=== PATIENT | male | born 1940 | race Caucasian/White ===

== ENCOUNTER 2018-10-20 01:22 | Outpatient (CLI) | payer MEDICARE, SELFPAY ==
[2018-10-20 11:02] LABS: Hemoglobin A1C 7.4 % (4.5-6.2)
[2018-10-20 11:10] LABS: Anion Gap 9.6 mmol/L (3-11); BUN 14 mg/dL (7-18); CO2 26.4 mmol/L (21.0-32.0); CREATININE 0.77 mg/dL (0.70-1.30); Calcium 8.9 mg/dL (8.5-10.1); Chloride 105 mmol/L (98-107); Cholesterol 249 mg/dL (50-200); Glucose 152 mg/dL (70-100); HDL Cholesterol 62 mg/dL (40-60); LDL CHOLESTEROL 157 mg/dL (<100); Potassium 4.2 mmol/L (3.5-5.1); Sodium 141 mmol/L (136-145); Triglyceride 136 mg/dL (30-150)
== END 2018-10-20 01:42 ==
PROVIDERS: PCP Family Medicine; Visit Provider Family Medicine
DX: E11.9 Type 2 diabetes mellitus without complications (principal); I10 Essential (primary) hypertension
CPT/HCPCS: 36415; 80048; 80061; 83721; 83036

== ENCOUNTER → 2019-05-19 09:50 | Outpatient (BNVA) | payer MEDICARE, SELFPAY | PROVIDERS: PCP Family Medicine; Referring Provider Family Medicine; Visit Provider Nurse Practitioner Adult Health | DX: G56.03 Carpal tunnel syndrome, bilateral upper limbs (principal); G56.23 Lesion of ulnar nerve, bilateral upper limbs | CPT/HCPCS: 95911; 99203 ==

== ENCOUNTER → 2019-11-10 10:45 | Outpatient (BNVA) | payer MEDICARE, SELFPAY | PROVIDERS: PCP Family Medicine; Referring Provider Family Medicine; Visit Provider Orthopaedic Surgery | DX: G56.03 Carpal tunnel syndrome, bilateral upper limbs (principal) | CPT/HCPCS: 99201; 99213 ==

== ENCOUNTER 2019-11-20 08:00 | Outpatient (CLI) | payer MEDICARE, SELFPAY | END 2019-11-20 08:20 | PROVIDERS: PCP Family Medicine; Visit Provider Orthopaedic Surgery | DX: Z01.818 Encounter for other preprocedural examination (principal); G56.01 Carpal tunnel syndrome, right upper limb; I10 Essential (primary) hypertension; E11.9 Type 2 diabetes mellitus without complications; Z79.01 Long term (current) use of anticoagulants ==

== ENCOUNTER 2020-01-08 07:28 | Outpatient (CLI) | payer MEDICARE, SELFPAY ==
[2020-01-10 00:31] LABS: COVID-19 RT-PCR Result NEGATIVE (Negative)
== END 2020-01-08 07:48 ==
PROVIDERS: PCP Family Medicine; Visit Provider Orthopaedic Surgery
DX: Z01.818 Encounter for other preprocedural examination (principal)
CPT/HCPCS: U0003

== ENCOUNTER 2020-01-11 06:40 | Day surgery (SDC) | payer MEDICARE, SELFPAY ==
[2020-01-11 06:58] VITALS: BP 127/70; PULSE 86; RESP 18; TEMP 36.4; O2SAT 99
[2020-01-11] MEDS: Lactated Ringers 1,000 ML 80 ML IV (07:20)
[2020-01-11] MEDS: ceFAZolin 1 GM/50 ML BAG IVPB (07:30)
--- NOTE | 2020-01-11 08:06 | PDOC.DSDIS_ITS ---
Discharge Plan Disposition Patient Disposition: HOME Condition: Good Discharge Details Reason For Visit: R ECTR Attending Provider: Johnnie Ac Primary Care Provider: Deejay Ray Home Meds and New Rx's Prescriptions: New hydrocodone-acetaminophen 5-325 mg tablet 1 tab PO Q6H PRN (Reason: pain) Qty: 7 RF: 0 Continued atorvastatin 40 mg tablet 40 mg PO DAILY Qty: 90 RF: 4 tamsulosin 0.4 mg capsule 0.4 mg PO DAILY Qty: 90 RF: 4 azelastine 0.15 % (205.5 mcg) spray,non-aerosol 2 spray NEGRITA BID PRN (Reason: nasal congestion) Qty: 30 RF: 0 lisinopril 30 mg tablet 40 mg PO DAILY RF: 0 aspirin 325 MG tablet 325 mg PO DAILY RF: 0 (DME) blood-glucose meter [[employer] UltraMini] 1 EACH kit 1 ea Miscellaneous ONCE RF: 0 (DME) Blood Glucose Test Strip 1 ea Miscellaneous DAILY Qty: 100 RF: 4 (DME) lancets 28 gauge misc 1 ea Miscellaneous DAILY Qty: 100 RF: 4 clopidogrel 75 mg tablet 75 mg PO DAILY Qty: 90 RF: 4 metoprolol succinate 100 mg tablet extended release 24 hr 100 mg PO DAILY Qty: 90 RF: 3 metformin 850 mg tablet 850 mg PO BID Qty: 180 RF: 4 amlodipine 10 mg tablet 10 mg PO QAM Qty: 90 RF: 4 aspirin 81 mg Tablet,Chewable 81 mg PO DAILY RF: 0 hydrochlorothiazide 12.5 mg Capsule 12.5 mg PO DAILY RF: 0 Discharge Instructions Additional Instructions: Elevate R hand above heart level as much as possible overnite tonite. Wiggle fingers 10 times/hour when awake to prevent swelling. Keep splint and dressings dry and in place for 48 hours. After 48 hours, remove splint and dressings and begin to move R wrist. May use R hand as much as your discomfort allows. May shower or bathe and get incision wet after you remove the dressings in 48 hours. Leave incision uncovered when it is dry and sealed. Your fingers R hand may stay numb for 24 hours due to nerve block I put in to decrease post-op pain. Follow up with in 2 weeks. Take tylenol for mild pain. Take hydrocodone for breakthru pain. Resume your Plavix tonite. Referrals: Johnnie Ac MD [ [facility] STAFF PHYSICIAN] - (f/u in 2 weeks.) Equipment/Supplies: Splint Activity:: Activity as Tolerated Remove Dressings/Wound Care:: 48 hours Shower/Bathe:: 48 hours Diet:: As Tolerated Discharge Orders Discharge Orders: Discharge Order (Routine); Ordered 01/11/20 Ordered By: Johnnie Ac
[2020-01-11 08:35] VITALS: BP 127/76; PULSE 74; RESP 18; TEMP 36.3; O2SAT 97
--- NOTE | 2020-01-11 16:41 | W.PM.OP ---
Date of service: 01/11/20 Time of Service: 08:01 Operative Note Operative Note DATE OF PROCEDURE: 01/11/20 PRE-OP DIAGNOSIS: Right carpal tunnel syndrome POST-OP DIAGNOSIS: same PROCEDURE: Endoscopic carpal tunnel release right SURGEON: Johnnie Ac ANESTHESIA: regional PATHOLOGY: none sent TOURNIQUET TIME: 20 COMPLICATIONS: None Patient was transported to: PACU Patient's condition: stable Indications: This is a 79-year-old white male with a greater than 11-month history of persistent numbness in his index middle and ring fingers. He gets intermittent numbness in his thumb. This is associated with significant pain in his right hand. He was evaluated by neurology and was noted to have the moderate to severe carpal tunnel syndrome on the right in May 2019. He does not feel splinting helps. He feels that his pain and numbness is getting worse. He has difficulty picking up small objects and buttoning his buttons. Carpal tunnel release was recommended to alleviate his symptoms. Patient wished to undergo the endoscopic technique of carpal tunnel release. The risk and complication of the procedure have been explained to patient detail preop. Procedure Description: Patient taken the operating room on 01/11/2020 he was placed supine operative table. IV regional anesthesia was administered to the right upper extremity. Once good anesthesia was obtained the right hand wrist and forearm were prepped and draped free in the usual sterile fashion. Incision was made in line with the proximal flexion crease of the right wrist beginning at the flexor carpi radialis and extending to the flexor carpi ulnaris tendon. Incision was carried through the skin and subcu to the fascia. Subcutaneous veins were cauterized. The palmaris longus tendon was retracted radially and then a distally based fascial flap was raised to gain access to the carpal canal. Synovial reflector was used to release any soft tissue attachments to the undersurface of the volar carpal ligament. Series of obturators were then used to create room for the endoscope. TheAgee endoscope blade device was then inserted into the carpal canal. Care was taken the position endoscope against the hook of the hamate. The endoscope was advanced until the distal edge of the volar carpal ligament was clearly visualized. The trigger was depressed elevating the blade and the elevated blade was then brought out from distal to proximal through the incision. The endoscope was then placed back on the carpal canal and the median nerve was seen to fall into the defect created in the volar carpal ligament. The endoscope was removed. Using Littler scissors a subcutaneous fasciotomy was then performed from the incision proximally about 2 inches. The wound was irrigated saline solution. The wound margins were infiltrated with 0.5% Marcaine with epinephrine solution. A median nerve block was performed with 0.5% Marcaine with epinephrine solution. The skin edges were approximated with 2 horizontal mattress sutures of 4-0 nylon suture material. Wounds dressed with Xeroform gauze sterile gauze 4 x 4's wrapped with a Kerlix bandage wrapped with an Jonathon bandage and then placed in a commercial cock-up wrist splint. Patient's IV regional anesthesia was reversed without complications. He was discharged to the recovery room in good condition. Patient was discharged home from day surgery unit when fully recovered from his IV regional anesthesia. Patient was given instructions to elevate his right hand above heart level as much as possible for the next 24 hours. He is encouraged to wiggle his fingers 10 times an hour when awake to prevent swelling. He is instructed to remove his splint and dressings after 48 hours. He may then shower or bathe and get his incision wet. He may use his right hand is much as discomfort allows. He is to leave the incision uncovered when is dry and sealed. He is encouraged to take Tylenol for mild pain. He is given prescription for hydrocodone with APAP 10/10/2024, 1 p.o. every 6 hours as needed for breakthrough pain. Should follow-up with Dr. Ac's office in 2 weeks.
== END 2020-01-11 09:23 | disposition home or self-care (01) ==
PROVIDERS: PCP Family Medicine; Visit Provider Orthopaedic Surgery
PROC: 01N54ZZ Release Median Nerve, Percutaneous Endoscopic Approach (ICD-10-PCS; CPT 29848; principal; 2020-01-11 07:30)
DX: G56.01 Carpal tunnel syndrome, right upper limb (principal)
CPT/HCPCS: 29848; J0690; J2704; L3908

== ENCOUNTER → 2020-01-26 10:19 | Outpatient (BNVA) | payer MEDICARE, SELFPAY | PROVIDERS: PCP Nurse Practitioner; Referring Provider Family Medicine; Visit Provider Orthopaedic Surgery | DX: Z47.89 Encounter for other orthopedic aftercare (principal); G56.03 Carpal tunnel syndrome, bilateral upper limbs; E11.9 Type 2 diabetes mellitus without complications; I10 Essential (primary) hypertension ==

== ENCOUNTER 2020-03-21 08:47 | Outpatient (CLI) | payer MEDICARE, SELFPAY ==
[2020-03-22 17:47] LABS: COVID-19 RT-PCR Result NEGATIVE (Negative)
== END 2020-03-21 09:07 ==
PROVIDERS: PCP Family Medicine; Visit Provider Family Medicine
DX: Z11.59 Encounter for screening for other viral diseases (principal); Z01.818 Encounter for other preprocedural examination
CPT/HCPCS: U0003

== ENCOUNTER → 2020-04-26 09:50 | Outpatient (BNVA) | payer MEDICARE, SELFPAY | PROVIDERS: PCP Family Medicine; Referring Provider Family Medicine; Visit Provider Orthopaedic Surgery | DX: Z47.89 Encounter for other orthopedic aftercare (principal); G56.03 Carpal tunnel syndrome, bilateral upper limbs | CPT/HCPCS: 99213 ==

== ENCOUNTER → 2020-07-25 09:52 | Outpatient (BNVA) | payer MEDICARE, SELFPAY | PROVIDERS: PCP Family Medicine; Referring Provider Family Medicine; Visit Provider Student in an Organized Health Care Education/Training Program | DX: Z47.89 Encounter for other orthopedic aftercare (principal); G56.03 Carpal tunnel syndrome, bilateral upper limbs | CPT/HCPCS: 99213 ==

== ENCOUNTER → 2020-08-30 14:00 | Outpatient (BNVA) | payer MEDICARE, SELFPAY | PROVIDERS: PCP Family Medicine; Referring Provider Student in an Organized Health Care Education/Training Program; Visit Provider Nurse Practitioner Adult Health | DX: G56.03 Carpal tunnel syndrome, bilateral upper limbs (principal) | CPT/HCPCS: 95909; 99214 ==

== ENCOUNTER → 2020-09-16 08:42 | Outpatient (BNVA) | payer MEDICARE, SELFPAY | PROVIDERS: PCP Family Medicine; Referring Provider Family Medicine; Visit Provider Student in an Organized Health Care Education/Training Program | DX: M72.0 Palmar fascial fibromatosis [Dupuytren] (principal); M65.332 Trigger finger, left middle finger; G56.01 Carpal tunnel syndrome, right upper limb; G56.02 Carpal tunnel syndrome, left upper limb | CPT/HCPCS: 20550; 99213; J1030 ==

== ENCOUNTER 2020-09-24 15:22 | Inpatient (IN) | payer MEDICARE, SELFPAY ==
[2020-09-24] VITALS (52 sets, daily range): BP systolic 108–180; BP diastolic 58–99; PULSE 61–143; RESP 8–29; TEMP 36.4–36.7; O2SAT 94–100
--- NOTE | 2020-09-24 15:15 | RT.EKG_ITS ---
APPROVED REPORT Exam: Resting ECG Patient Location: E HR:120 bpm ECG Measurements Heart Rate 120 AXIS HI [id number] P [id number] QRSd 100 QRS 2 QT 350 T 176 QTc 494 Conclusion Atrial fibrillation...V-rate 82-152, irreg A-activity Repol abnrm, prob ischemia, anterolateral lds...ST dep, T neg, I aVL V2-V6 I have reviewed and interpreted ECG and agree with software generated interpretation.
[2020-09-24 15:42] LABS: Abs Immature Grans 0.05 10^3/uL (0.0-0.06); Absolute Basophil Count 0.03 10^3/uL (0.0-0.2); Absolute Eosinophil Count 0.09 10^3/uL (0.0-0.7); Absolute Lymphocyte Count 1.22 10^3/uL (1.2-3.4); Absolute Monocyte Count 0.61 10^3/uL (0.1-0.8); Absolute Neutrophil Count 6.41 10^3/uL (1.2-6.7); Basophils % 0.4; Eosinophils % 1.1; HCT 42.8 % (40.0-50.0); HGB 14.8 g/dL (13.5-17.5); Immature Grans % 0.6; Lymphocytes % 14.5; MCH 31.8 pg (27.0-33.0); MCHC 34.6 % (32.0-36.0); MPV 10.1 fL (8.0-11.0); Monocytes % 7.3; Neutrophils % 76.1; Nucleated RBC 0 %; Platelet Count 210 10^3/uL (130-400); RBC 4.65 10^6/uL (4.36-5.78); RDW 12.1 % (11.8-14.1); WBC 8.41 10^3/uL (4.4-10.8)
[2020-09-24 15:57] LABS: INR 1.2 (0.9-1.1); PTT Activated 23.9 sec (21.0-27.5)
[2020-09-24 15:58] LABS: ALT 29 U/L (16-63); AST 13 U/L (15-37); Albumin 4.4 g/dL (3.4-5.0); Alkaline Phosphatase 47 U/L (46-116); Anion Gap 19.8 mmol/L (3-11); BUN 20 mg/dL (7-18); Bilirubin, Total 0.5 mg/dL (0.2-1.0); CO2 19.2 mmol/L (21.0-32.0); CREATININE 1.4 mg/dL (0.70-1.30); Chloride 101 mmol/L (98-107); Estimated GFR 48.76 (mL/min/1.73m2); Glucose 292 mg/dL (74-106); Magnesium 1.2 mg/dL (1.8-2.4); Potassium 3.5 mmol/L (3.5-5.1); Sodium 140 mmol/L (136-145); Total Protein 7.9 g/dL (6.4-8.2)
[2020-09-24 15:59] LABS: Troponin I < 0.05 ng/mL (<0.06)
--- NOTE | 2020-09-24 16:00 | DI.CT_ITS ---
EXAM: CT CHEST PE CTA CLINICAL HISTORY: chest pain, sob, r/o acute disease/PE. TECHNIQUE: Imaging Protocol: Axial CT angiography was performed with multi-slice acquisition and mu lti-planar and/or 3D reconstructions. CONTRAST MATERIAL: Intravenous: Omnipaque 350 Contrast volume:structured data in ml COMPARISON: No exams were available for comparison FINDINGS: CT angiography of the chest was performed with intravenous infusion of 80 cc of Visipaque 320 There is significant motion artifact which limits evaluation of the lungs, however there does appear to be some prominence of the pulmonary interstitial markings particularly in the perihilar regions. No pleural effusion. Tracheobronchial tree appears intact. No evidence of pulmonary embolic disease. Thoracic aorta is mildly ectatic at 41 millimeters. There is a right-sided aortic arch. Left subclavian artery is retrotracheal and retroesophageal. Incidental note is made of a left renal artery stent. No mediastinal or hilar adenopathy. Images obtained through the upper abdomen show unremarkable appearance of the visualized portions of the liver, spleen, pancreas, adrenals, and kidneys. IMPRESSION: No evidence of pulmonary embolic disease. Question mild pulmonary edema. RADIATION DOSE DELIVERED: 330.89mGy.cm Total DLP 330.89mGy.cm Total DLP DATA REPOSITORY: All CT scans at this facility are submitted to the National Radiology Data Registry (NRDR) Dose Index Registry (DIR) with the [employer] (ACR). RADIATION OPTIMIZATION: All CT scans at this facility use at least one of these dose optimization te chniques: automated exposure control; mA and/or kV adjustment per patient size (includes targeted exa ms where dose is matched to clinical indication); or iterative reconstruction.
[2020-09-24] MEDS: Metoprolol 5 MG/5 ML VIAL IVP (16:04)
[2020-09-24] MEDS: Normal Saline 250 ML IV (16:04)
--- NOTE | 2020-09-24 16:11 | W.ED.GENAD ---
Discharge Plan Disposition Patient Disposition: [facility] INPATIENT Condition: Stable Discharge Details Clinical Impression: Atrial fibrillation with rapid ventricular response, Hypomagnesemia, Bilateral lower extremity edema, History of congestive heart failure Admit Date/Time: 09/24/20 18:51 Admit Provider: Yazmin Jeffery Attending Provider: Yazmin Jeffery Primary Care Provider: Wesley Negrete ED Provider: Stacy Owens Discharge Data Discharge Date/Time-TO BE ENTERED AT DEPARTURE: 09/24/20 20:20 Medical Decision Making 1540 -- 80-year-old male with a history of hypertension, coronary artery disease, diabetes, CABG, coronary artery stent who presents for chest pain or shortness of breath since this afternoon. EKG on arrival notes a rate of 120, atrial fibrillation with ST depression in anterolateral leads. No STEMI. Heart rate irregular and 120s to 150s on the monitor. He is afebrile and appears nontoxic. His oxygen saturation is 99% on room air and he does not appear in any acute respiratory distress. Suspect his chest pain or shortness of breath is due to his A. fib with RVR. Will obtain screening labs and CT chest to rule out PE and give IV fluids and a dose of 5 mg Lopressor IV x1 and reassess. 1645 -- Only minimal temporary response after Lopressor, heart rate 120s. Will give a dose of Cardizem 15 mg IV x1 and reassess. 1830 -- Labs reviewed. Normal white blood cell count and hemoglobin. Glucose 292. Bicarb 19.2. Anion gap of 19.8. Magnesium 1.2, will replete. Troponin negative. BNP 858. CT chest negative for PE or focal consolidation but does note cardiomegaly and mild patchy opacities suggestive of CHF. Heart rate after Cardizem dose in the 70s to 80s. Patient reassessed and he states he feels much better. He currently denies any chest pain or shortness of breath. Patient is asking if he could possibly go home. Discussed with patient that considering his age and his medical history and his initial presentation, would recommend admission overnight for observation, telemetry monitoring and trending troponins and EKGs. is at bedside. and patient are agreeable with plan. Case discussed with hospitalist accepts patient for admission. Will give dose of Cardizem 30mg PO x 1 now. Medical Records Medical records reviewed: Yes I reviewed the patient's medical records. Imaging Data Radiologic Study: Attestation: I personally reviewed and interpreted this imaging study as follows: Radiologist's impression: CTA Chest With Contrast Exam date and time: 09/24/2020 5:33 PM Age: 80 years old Clinical indication: Shortness of breath; Prior surgery; Surgery date: 6+ months TECHNIQUE: Imaging protocol: Computed tomographic angiography of the chest with contrast. 3D rendering (Not supervised by radiologist): MIP and/or 3D reconstructed images were created by the technologist. Contrast material: VISIPAQUE 320; Contrast volume: 80 ml; Contrast route: INTRAVENOUS (IV); COMPARISON: No relevant prior studies available. FINDINGS: Pulmonary arteries: There is no pulmonary embolism. Aorta: The ascending aorta is ectatic measuring up to 4.1 cm. There is a right-sided arch of aorta with probable mirror image branching the great vessels. There is moderate calcification of arch and descending thoracic aorta. The postoperative changes due to cardiac bypass. Other arteries: There is a probable stent at the origin of the left renal artery. Lungs: There is mild interlobular septal thickening and hazy ground-glass densities in the bilateral lungs suspicious of mild pulmonary edema or congestive heart failure pattern Pleural spaces: There is no pleural effusion.. Heart: Heart is enlarged with biatrial enlargement. Mediastinal space: There is small hiatal hernia. Lymph nodes: Unremarkable. No enlarged lymph nodes. Bones/joints: There are degenerative changes in the thoracic spine. There are median sternotomy wires. Soft tissues: Unremarkable. IMPRESSION: 1. No pulmonary embolism or aortic dissection. 2. Cardiomegaly with mild patchy ground-glass densities suspicious of congestive heart failure pattern. Correlate clinically. No pleural effusion. 3. No focal consolidation. 4. 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 Lab Data Lab results reviewed: Yes I reviewed the patient's lab results. ECG Data Attestation: I personally reviewed and interpreted this ECG (s) as follows: Interpretation: Rate of 120, atrial fibrillation, [address] depression in 1, 2, aVL, V4 through V6. No STEMI. HPI General Mode of arrival: ambulatory. Date/Time Provider Initiated Documentation: 09/24/20 15:32. Limitations to Documentation: no limitations. Information obtained by: patient. HPI Narrative: Patient is an 80-year-old male with a history of atrial fibrillation, hypertension, coronary artery disease, diabetes, CABG and coronary artery stent placement who presents to the ED with complaint of chest pain or shortness of breath started this afternoon. Patient states he had his symptoms both at rest and with walking around. He denies any exertional activities today. He denies any fever, cough, vomiting or diarrhea. He states he took his regular medications today including his metoprolol. He denies any recent illness and states he was feeling fine this morning. Related Data Home Medications Medication Instructions Recorded Confirmed blood-glucose meter [OneTouch kit 12/01/12 09/24/20 UltraMini] atorvastatin 40 mg tablet 40 mg PO DAILY #90 tab-cap 10/21/18 09/24/20 tamsulosin 0.4 mg capsule 0.4 mg PO DAILY #90 cap 01/20/19 09/24/20 azelastine 205.5 mcg (0.15 %) 2 spray NEGRITA BID PRN #30 ml 06/30/19 09/24/20 nasal spray lancets 28 gauge #100 ea 07/02/19 09/24/20 metformin 850 mg tablet 850 mg PO BID #180 tab-cap 11/12/19 09/24/20 metoprolol succinate 100 mg 100 mg PO DAILY #90 tab-cap 11/12/19 09/24/20 tablet,extended release 24 hr amlodipine 10 mg tablet 10 mg PO QAM #90 tab-cap 11/27/19 09/24/20 lisinopril 30 mg tablet 40 mg PO DAILY tab-cap 12/31/19 09/24/20 hydrochlorothiazide 12.5 mg PO DAILY 01/07/20 09/24/20 aspirin 81 mg chewable tablet 81 mg PO PRN tab 03/09/20 09/24/20 apixaban 5 mg tablet 5 mg PO BID #180 tab 07/13/20 09/24/20 blood sugar diagnostic #100 ea 09/08/20 09/24/20 Previous Rx's Medication Instructions Recorded atorvastatin 40 mg tablet 40 mg PO DAILY #90 tab-cap 10/21/18 tamsulosin 0.4 mg capsule 0.4 mg PO DAILY #90 cap 01/20/19 azelastine 205.5 mcg (0.15 %) 2 spray NEGRITA BID PRN #30 ml 06/30/19 nasal spray lancets 28 gauge #100 ea 07/02/19 metformin 850 mg tablet 850 mg PO BID #180 tab-cap 11/12/19 metoprolol succinate 100 mg 100 mg PO DAILY #90 tab-cap 11/12/19 tablet,extended release 24 hr amlodipine 10 mg tablet 10 mg PO QAM #90 tab-cap 11/27/19 apixaban 5 mg tablet 5 mg PO BID #180 tab 07/13/20 blood sugar diagnostic #100 ea 09/08/20 Allergies Allergy/AdvReac Type Severity Reaction Status Date / Time No Known Allergies Allergy Verified 09/16/20 08:51 General Stated Complaint: Chest Pain HIEN: 2 Review of Systems All systems reviewed & are unremarkable except as noted in HPI and below Constitutional Constitutional: Reports as per HPI, Denies chills and Denies fever(s) Eyes Eyes: Denies blurry vision ENT Ears, Nose, Mouth, and Throat: Denies dizziness, Denies sore throat and Denies throat swelling Cardiovascular Cardiovascular: Reports chest pain and Reports dyspnea Respiratory Respiratory: Denies cough and Reports dyspnea Gastrointestinal Gastrointestinal: Denies abdominal pain, Denies diarrhea and Denies vomiting Genitourinary Genitourinary: Denies hematuria and Denies dysuria Musculoskeletal Musculoskeletal: Denies back pain and Denies numbness Integumentary/Breasts Skin/Breast: Denies lesions and Denies rash Neurologic Neurologic: Denies dizziness, Denies localized weakness and Denies numbness Allergic/Immunologic Allergic/Immunologic: Denies throat swelling [facility] Medical History (Updated 09/24/20 @ 22:12 by Yazmin Jeffery MD) Angina pectoris Atherosclerosis of [place] coronary artery coronary stent x 5 05/14 Echo 07/16-LVEF 68% Carotid artery stenosis right; stent placed 04/17 Diabetes mellitus (12/09/12) Essential hypertension (06/09/13) Surgical History History of intravascular stent placement Repair of inguinal hernia right Status post inguinal hernia repair Status post three vessel coronary artery bypass Status post tonsillectomy Stent placement 2004; 5 stents 1 stent to left renal artery TRIPLE BYPASS 1 CAROTID STENT ON RIGHT SIDE 5 STENTS TOTAL Family History Mother , AGE 80 Diabetes Heart disease Father , AGE 80 Heart disease Sister No problems noted. Brother No problems noted. Sister No problems noted. Brother Diabetes Heart disease Son , AGE 50 Alcohol abuse Depression Hypertension Daughter No problems noted. Daughter No problems noted. Social History Smoking/Tobacco Use Status: Former Tobacco Use Second Hand Exposure: No Smoking risk assessment performed?: Yes Alcohol Intake: current Alcohol Intake frequency: a few times a week Alcohol type: beer and wine Drug use: Never Substance use type: does not use Details: alcohol: t-1, couple beers Household members: spouse Do you need help understanding health information?: Never Sexually active: No Do you think of yourself as: straight/heterosexual Current gender identity: decline to answer What is your relationship status?: How often do you talk on the phone with friends or family?: decline to answer How often do you get together with friends or relatives?: decline to answer How often do you attend confucianism or church services?: decline to answer Do you belong to any clubs or organized social groups?: no Panel score (0-1 are the most socially isolated patients): 1 What type of physical activity do you participate in: none Frequency: does not exercise Rani/Sikhism: Jehovah'S Witness Special rani needs: No Seatbelt use: always Drive intox or ride w/intox parts driver: No Do you feel safe at home: Yes Do you feel safe in your relationship?: Yes Exam Const General: cooperative and no acute distress HENMT Head: normal to inspection Face and sinus: normal facial exam Eyes General: appearance normal, both eyes and all related structures EOM: EOM intact bilaterally Neck Neck: normal visual inspection and No submandibular swelling Lymphatic: no lymphadenopathy noted Chest Chest: normal inspection of the chest and no tenderness Resp Effort & Inspection: normal respiratory effort and able to speak in complete sentences Auscultation: clear to auscultation bilaterally Cardio Rate: tachycardic Rhythm: abnormal rhythm irregularly irregular GI Inspection: normal to inspection Palpation: soft, not firm, not rigid and nontender Auscultation: normal bowel sounds Skin General skin exam: no rashes or lesions noted Neuro General: patient alert, patient awake and patient oriented x3 Cognition: normal cognition Speech: speech normal Motor: muscle tone normal throughout Sensory Exam: no sensory deficits noted Extrem General: normal to inspection, full ROM, capillary refill normal, no calf tenderness bilaterally and edema Laterality: bilateral (1+ pitting b/l LE) Psych Appearance: grossly normal Mental Status: mental status grossly normal Speech and Movement: speech and movement normal Affect: normal affect Course Vital Signs Vital signs: Vital Signs Temperature 97.5 F L 09/24/20 15:34 Pulse 120 H 09/24/20 15:34 Respiratory Rate 16 09/24/20 15:34 Blood Pressure 156/81 H 09/24/20 15:34 Pulse Oximetry 99 09/24/20 15:34 Temperature 97.5 F L 09/24/20 15:34 Temperature Source Temporal Artery Scan 09/24/20 15:34 Pulse 131 H 09/24/20 16:04 Respiratory Rate 16 09/24/20 15:34 Respiratory Effort 09/24/20 15:32 Respiratory Depth Normal 09/24/20 15:32 Respiratory Pattern Normal 09/24/20 15:32 Blood Pressure 169/92 H 09/24/20 16:04 Blood Pressure Position Supine 09/24/20 15:34 Pulse Oximetry 99 09/24/20 15:34 Oxygen Delivery Method Room Air 09/24/20 15:34 Oxygen Flow Rate 0 09/24/20 15:34 Pain Level 5 09/24/20 15:34 Lab/Test Results Lab/Test Results: Laboratory Tests Range/Units 09/24/20 09/24/20 09/24/20 15:38 15:38 15:38 WBC (4.4-10.8) 10^3/uL 8.41 RBC (4.36-5.78) 10^6/uL 4.65 Hgb (13.5-17.5) g/dL 14.8 Hct (40.0-50.0) % 42.8 MCV (80-95) fL 92.0 MCH (27.0-33.0) pg 31.8 MCHC (32.0-36.0) % 34.6 RDW (11.8-14.1) % 12.1 Plt Count (130-400) 10^3/uL 210 MPV (8.0-11.0) fL 10.1 Immature Gran % 0.6 Neutrophils % 76.1 Lymphocytes % 14.5 Monocytes % 7.3 Eosinophils % 1.1 Basophils % 0.4 Nucleated RBC % % 0 Absolute Neutrophils (1.2-6.7) 10^3/uL 6.41 Absolute Lymphocytes (1.2-3.4) 10^3/uL 1.22 Absolute Monocytes (0.1-0.8) 10^3/uL 0.61 Absolute Eosinophils (0.0-0.7) 10^3/uL 0.09 Absolute Basophils (0.0-0.2) 10^3/uL 0.03 PT (9.3-11.0) sec 12.0 H INR (0.9-1.1) 1.2 H APTT (21.0-27.5) sec 23.9 Sodium (136-145) mmol/L 140 Potassium (3.5-5.1) mmol/L 3.5 Chloride (98-107) mmol/L 101 Carbon Dioxide (21.0-32.0) mmol/L 19.2 L Anion Gap (3-11) mmol/L 19.8 H BUN (7-18) mg/dL 20 H Creatinine (0.70-1.30) mg/dL 1.4 H Estimated GFR/1.73 m2 (mL/min/1.73m2) 48.76 Glucose (74-106) mg/dL 292 H Calcium (8.5-10.1) mg/dL 10.0 Magnesium (1.8-2.4) mg/dL 1.2 L Total Bilirubin (0.2-1.0) mg/dL 0.5 AST (15-37) U/L 13 L ALT (16-63) U/L 29 Alkaline Phosphatase (46-116) U/L 47 Troponin I (<0.06) ng/mL < 0.05 Total Protein (6.4-8.2) g/dL 7.9 Albumin (3.4-5.0) g/dL 4.4
[2020-09-24] MEDS: MAGNESIUM SULFATE 2 GM/50 ML BAG IVPB ×2 (16:16→22:16)
[2020-09-24 16:37] LABS: NT-proBNP 858 pg/mL (<300)
[2020-09-24] MEDS: dilTIAZem 25 MG/5 ML VIAL 15 MG IVP (16:54)
[2020-09-24 17:18] LABS: BE (Venous) -2 mmol/L (-2-3); HCO3 (Venous) 23 mmol/L (23-28); O2 Sat (Venous) 70 %; TCO2 (Venous) 20 mmol/L (24-29); pCO2 (Venous) 35 mmHg (41-51); pH (Venous) 7.41 (7.31-7.41); pO2 (Venous) 35 mmHg
[2020-09-24] MEDS: Normal Saline - Diluent 50 ML VIAL IV (17:39)
[2020-09-24] MEDS: Normal Saline Flush 10 ML SYR IVP ×2 (17:39→21:31)
--- NOTE | 2020-09-24 18:12 | DI.VRAD_ITS ---
PROCEDURE INFORMATION: Exam: CTA Chest With Contrast Exam date and time: 09/24/2020 5:33 PM Age: 80 years old Clinical indication: Shortness of breath; Prior surgery; Surgery date: 6+ months TECHNIQUE: Imaging protocol: Computed tomographic angiography of the chest with contrast. 3D rendering (Not supervised by radiologist): MIP and/or 3D reconstructed images were created by the technologist. Contrast material: VISIPAQUE 320; Contrast volume: 80 ml; Contrast route: INTRAVENOUS (IV); COMPARISON: No relevant prior studies available. FINDINGS: Pulmonary arteries: There is no pulmonary embolism. Aorta: The ascending aorta is ectatic measuring up to 4.1 cm. There is a right-sided arch of aorta with probable mirror image branching the great vessels. There is moderate calcification of arch and descending thoracic aorta. The postoperative changes due to cardiac bypass. Other arteries: There is a probable stent at the origin of the left renal artery. Lungs: There is mild interlobular septal thickening and hazy ground-glass densities in the bilateral lungs suspicious of mild pulmonary edema or congestive heart failure pattern Pleural spaces: There is no pleural effusion.. Heart: Heart is enlarged with biatrial enlargement. Mediastinal space: There is small hiatal hernia. Lymph nodes: Unremarkable. No enlarged lymph nodes. Bones/joints: There are degenerative changes in the thoracic spine. There are median sternotomy wires. Soft tissues: Unremarkable. IMPRESSION: 1. No pulmonary embolism or aortic dissection. 2. Cardiomegaly with mild patchy ground-glass densities suspicious of congestive heart failure pattern. Correlate clinically. No pleural effusion. 3. No focal consolidation. 4. 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 Dictated and Authenticated by: Robert Spencer MD. Ordering:MI Kumar MD
[2020-09-24 19:34] LABS: Lactate 2.9 mmol/L (0.6-1.4)
[2020-09-24] MEDS: dilTIAZem 30 MG TAB PO (19:53)
--- NOTE | 2020-09-24 19:59 | NUR.NOTE ---
Attempted to call report to ICU. State they are unable to take reports as they just received another pt. will call back.
[2020-09-24 20:05] LABS: Source Nasal/Nares
[2020-09-24 20:34] LABS: Troponin I 3.08 ng/mL (<0.06)
[2020-09-24] MEDS: Aspirin 325 MG TAB (20:50)
--- NOTE | 2020-09-24 21:24 | W.PM.HP.N ---
Date of service: 09/24/20 Time of Service: 21:00 Assessment and Plan Assessment and plan (1) NSTEMI (non-ST elevated myocardial infarction): Status: Acute Assessment and plan: Rate-related ischemia in setting of pre-existing CAD. Patient is s/p asa 325 mg and initiated on heparin gtt. Discussed with [facility] [place] [place] cardiology (Dr Ledesma): as EKG got a lot better with rate control, at this time, will not start plavix. Patient is accepted in transfer by [facility] [place] [place] cardiology (Accepting MD Dr Marks). Continue beta blockers; given PO cardizem in the ED, which we will also continue. (2) Atrial fibrillation with rapid ventricular response: Status: Acute Assessment and plan: The patient is receiving PO metoprolol and cardizem. Anticoagulation with heparin gtt. Replete lytes (3) Pulmonary edema: Status: Acute Assessment and plan: Mild. Patient is not tachypneic and not requiring O2, but probably does have rate dependent pulmonary edema. Prior EF is preserved. The patient just received IV contrast with CTA and may require more contrast tonight with cardiac cath. Will hold off of lasix tonight. (4) Hypomagnesemia: Status: Acute Assessment and plan: Replete (5) Diabetes mellitus: Status: Chronic Assessment and plan: SSI Qualifiers: Diabetes mellitus complication status: without complication Diabetes mellitus alf insulin use: without alf use Diabetes mellitus type: type 2 Qualified Code(s): E11.9 - Type 2 diabetes mellitus without complications (6) Essential hypertension: Status: Chronic Assessment and plan: hold amlodipine, ang-i Continue BB; cardizem introduced. (7) Hyperlipidemia: Status: Chronic Assessment and plan: Continue statin (8) DVT prophylaxis: Status: Acute Assessment and plan: On therapeutic heparin gtt (9) Discharge planning issues: Status: Acute Assessment and plan: Full Code (Patient is discussing code status with ; he is not sure). Accepted in Transfer at [facility] [place] [place] cardiology by Dr Marks. Total Critical Care Time 90 minutes. 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 It is normal for Mr Renard to get exertional chest pains that resolve with rest, but the one today started when he was watching TV and did not subside for over an hour. The chest pain was substernal, pressure-like, accompanied by shortness of breath. The patient denied dizziness, radiation of pain, nausea, palpitations. On arrival to the ED, the patient was found to be in rapid A-fib with HR in 140s-150s. The HR decreased to 120 post 5 mg of IV lopressor. He received a bolus of diltiazem IV with HR coming down to the 90s. The chest pain resolved with control of HR. The patient is chest pain free now. His initial troponin was negative and his EKG showed diffuse ST-T abnormalities, seen on his prior EKG as well. Repeat troponin I is 3.08, and the ST-T changes on the EKG are significantly less pronounced. The patient was given aspirin 325 mg, is being initiated on heparin gtt and transfer to [facility] [place] [place] cardiology service is being sought for evaluation by interventional cardiology for a cardiac cath. The patient is in agreement with transfer. Review of Systems All systems reviewed & are unremarkable except as noted in HPI and below [facility] Medical History (Updated 09/24/20 @ 21:58 by Yazmin Jeffery MD) Angina pectoris Atherosclerosis of [place] coronary artery coronary stent x 5 05/14 Echo 07/16-LVEF 68% Carotid artery stenosis right; stent placed 04/17 Diabetes mellitus (12/09/12) Essential hypertension (06/09/13) Surgical History History of intravascular stent placement Repair of inguinal hernia right Status post inguinal hernia repair Status post three vessel coronary artery bypass Status post tonsillectomy Stent placement 2004; 5 stents 1 stent to left renal artery TRIPLE BYPASS 1 CAROTID STENT ON RIGHT SIDE 5 STENTS TOTAL Family History Mother , AGE 80 Diabetes Heart disease Father , AGE 80 Heart disease Sister No problems noted. Brother No problems noted. Sister No problems noted. Brother Diabetes Heart disease Son , AGE 50 Alcohol abuse Depression Hypertension Daughter No problems noted. Daughter No problems noted. Social History Smoking/Tobacco Use Status: Former Tobacco Use Second Hand Exposure: No Smoking risk assessment performed?: Yes Alcohol Intake: current Alcohol Intake frequency: a few times a week Alcohol type: beer and wine Drug use: Never Substance use type: does not use Details: alcohol: t-1, couple beers Household members: spouse Do you need help understanding health information?: Never Sexually active: No Do you think of yourself as: straight/heterosexual Current gender identity: decline to answer What is your relationship status?: How often do you talk on the phone with friends or family?: decline to answer How often do you get together with friends or relatives?: decline to answer How often do you attend evangelical or muslim services?: decline to answer Do you belong to any clubs or organized social groups?: no Panel score (0-1 are the most socially isolated patients): 1 What type of physical activity do you participate in: none Frequency: does not exercise Rani/Zoroastrianism: Amish Special rani needs: No Seatbelt use: always Drive intox or ride w/intox 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: No Do you feel safe at home: Yes Do you feel safe in your relationship?: Yes Meds Allergies and Home Medications Allergies Allergy/AdvReac Type Severity Reaction Status Date / Time No Known Allergies Allergy Verified 09/16/20 08:51 Home Medications Medication Instructions Recorded Confirmed Type blood-glucose meter [OneTouch kit 12/01/12 09/24/20 History UltraMini] atorvastatin 40 mg tablet 40 mg PO DAILY #90 tab-cap 10/21/18 09/24/20 Rx tamsulosin 0.4 mg capsule 0.4 mg PO DAILY #90 cap 01/20/19 09/24/20 Rx azelastine 205.5 mcg (0.15 %) 2 spray NEGRITA BID PRN #30 ml 06/30/19 09/24/20 Rx nasal spray lancets 28 gauge #100 ea 07/02/19 09/24/20 Rx metformin 850 mg tablet 850 mg PO BID #180 tab-cap 11/12/19 09/24/20 Rx metoprolol succinate 100 mg 100 mg PO DAILY #90 tab-cap 11/12/19 09/24/20 Rx tablet,extended release 24 hr amlodipine 10 mg tablet 10 mg PO QAM #90 tab-cap 11/27/19 09/24/20 Rx lisinopril 30 mg tablet 40 mg PO DAILY tab-cap 12/31/19 09/24/20 History hydrochlorothiazide 12.5 mg PO DAILY 01/07/20 09/24/20 History aspirin 81 mg chewable tablet 81 mg PO PRN tab 03/09/20 09/24/20 History apixaban 5 mg tablet 5 mg PO BID #180 tab 07/13/20 09/24/20 Rx blood sugar diagnostic #100 ea 09/08/20 09/24/20 Rx Exam Narrative Exam Narrative: General: Pleasant elderly male, A&Ox3, anxious, does not appear to be in acute distress Neurological: A&Ox3, no focal deficits Psychiatric: anxious Skin: well healed CABG sternotomy scar; visible skin intact HEENT: Atraumatic, normocephalic, EOMI, MMM, clear oropharynx, no submandibular or cervical lymphadenopathy, no goiter or JVD Cardiovascular: irregularly irregular rhythm, no m/r/g Lungs: coarse breath sounds at B bases Gastrointestinal: soft, nontender, nondistended Genitourinary: deferred Extremities: trace edema BLE's, faint pedal pulses Results Imaging Additional studies: CTA chest: 1. No pulmonary embolism or aortic dissection. 2. Cardiomegaly with mild patchy ground-glass densities suspicious of congestive heart failure pattern. Correlate clinically. No pleural effusion. 3. No focal consolidation. 4. 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 EKG #1: HR 120, Afib, inferolateral ST depressions, diffuse ST-T abnormalities EKG #2: HR 88, Afib, ST-T changes still seen, but less pronounced Labs Result diagrams: 09/24/20 15:38 09/24/20 15:38 Labs: Laboratory Results - last 24 hr 09/24/20 09/24/20 09/24/20 15:38 15:38 15:38 WBC 8.41 RBC 4.65 Hgb 14.8 Hct 42.8 MCV 92.0 MCH 31.8 MCHC 34.6 RDW 12.1 Plt Count 210 MPV 10.1 Immature Gran % 0.6 Neutrophils % 76.1 Lymphocytes % 14.5 Monocytes % 7.3 Eosinophils % 1.1 Basophils % 0.4 Nucleated RBC % 0 Absolute Neutrophils 6.41 Absolute Lymphocytes 1.22 Absolute Monocytes 0.61 Absolute Eosinophils 0.09 Absolute Basophils 0.03 PT 12.0 H INR 1.2 H APTT 23.9 VBG pH VBG pCO2 VBG pO2 VBG HCO3 VBG Total CO2 VBG O2 Saturation VBG Base Excess VBG Lactate Sodium 140 Potassium 3.5 Chloride 101 Carbon Dioxide 19.2 L Anion Gap 19.8 H BUN 20 H Creatinine 1.4 H Estimated GFR/1.73 m2 48.76 Glucose 292 H Calcium 10.0 Magnesium 1.2 L Total Bilirubin 0.5 AST 13 L ALT 29 Alkaline Phosphatase 47 Troponin I < 0.05 NT-Pro-B Natriuret Pep Total Protein 7.9 Albumin 4.4 COVID-19 Source 09/24/20 09/24/20 09/24/20 15:38 17:10 19:10 WBC RBC Hgb Hct MCV MCH MCHC RDW Plt Count MPV Immature Gran % Neutrophils % Lymphocytes % Monocytes % Eosinophils % Basophils % Nucleated RBC % Absolute Neutrophils Absolute Lymphocytes Absolute Monocytes Absolute Eosinophils Absolute Basophils PT INR APTT VBG pH 7.41 VBG pCO2 35 L VBG pO2 35 VBG HCO3 23 VBG Total CO2 20 L VBG O2 Saturation 70 VBG Base Excess -2 VBG Lactate 2.9 H* Sodium Potassium Chloride Carbon Dioxide Anion Gap BUN Creatinine Estimated GFR/1.73 m2 Glucose Calcium Magnesium Total Bilirubin AST ALT Alkaline Phosphatase Troponin I NT-Pro-B Natriuret Pep 858 H Total Protein Albumin COVID-19 Source 09/24/20 09/24/20 19:56 20:00 WBC RBC Hgb Hct MCV MCH MCHC RDW Plt Count MPV Immature Gran % Neutrophils % Lymphocytes % Monocytes % Eosinophils % Basophils % Nucleated RBC % Absolute Neutrophils Absolute Lymphocytes Absolute Monocytes Absolute Eosinophils Absolute Basophils PT INR APTT VBG pH VBG pCO2 VBG pO2 VBG HCO3 VBG Total CO2 VBG O2 Saturation VBG Base Excess VBG Lactate Sodium Potassium Chloride Carbon Dioxide Anion Gap BUN Creatinine Estimated GFR/1.73 m2 Glucose Calcium Magnesium Total Bilirubin AST ALT Alkaline Phosphatase Troponin I 3.08 H* NT-Pro-B Natriuret Pep Total Protein Albumin COVID-19 Source Nasal/nares Last Vital Signs Temp 36.4 C L 09/24/20 15:34 Pulse 99 H 09/24/20 19:53 Resp 15 09/24/20 19:53 BP 137/69 09/24/20 19:53 Pulse Ox 97 09/24/20 19:53 COVID-19 Screening Have you, or household traveled for leisure in last 14 days?: No Had IN PERSON contact w/suspected or confirmed C-19 person: No
[2020-09-24] MEDS: Metoprolol 25 MG TAB PO (21:30)
--- NOTE | 2020-09-24 22:00 | DSE_ITS ---
Date of service: 09/24/20 Time of Service: 22:00 DS: Diagnosis Discharge Diagnosis (1) NSTEMI (non-ST elevated myocardial infarction): Status: Acute (2) Atrial fibrillation with rapid ventricular response: Status: Acute (3) Pulmonary edema: Status: Suspected (4) Hypomagnesemia: Status: Acute (5) Diabetes mellitus: Status: Chronic (6) Essential hypertension: Status: Chronic (7) Hyperlipidemia: Status: Chronic (8) COVID-19 ruled out by laboratory testing: Status: Ruled-out Discharge Plan Disposition Patient Disposition: [facility] Condition: Stable Discharge Details Reason For Visit: RAPID AFIB, CHEST PAIN, CHF Admit Date/Time: 09/24/20 18:51 Admit Provider: Yazmin Jeffery Attending Provider: Yazmin Jeffery Primary Care Provider: Wesley Negrete Hospital Course Hospital Course: Mr Glynn is an 80 year old male with PMHx of CAD s/p CABG in 2009, Afib on eliquis, CVA w/ h/o carotid stenosis and R internal carotid artery stent, 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 He was brought to [facility] ED today with complaints of chest pain. Mr Glynn has a h/o stable angina, but chest pain today started at rest and did not resolve until arrival to ED, more than 1 hr later. The chest pain was substernal, pressure-like, accompanied by shortness of breath. The patient denied dizziness, radiation of pain, nausea, palpitations. On arrival to the ED, the patient was found to be in rapid A-fib with HR in 140s-150s. The HR decreased to 120 post 5 mg of IV lopressor. He received a bolus of diltiazem IV (15 mg) with HR coming down to the 90s-low 100s. The chest pain resolved with control of HR. The patient is chest pain free now. His initial troponin was negative and his EKG showed diffuse ST-T abnormalities, seen on his prior EKG as well. Repeat troponin I is 3.08, and the ST-T changes on the EKG are significantly less pronounced. The patient was given aspirin 325 mg and initiated on heparin gtt. The patient was accepted in transfer to [facility] cardiology service by Dr Marks for evaluation for cardiac cath. Patient is stable for transfer and is in agreement with transfer. Additional 30 minutes were spent on preparation of his transfer. Please, look at MAR for list of inpatient medications. Home Meds and New Rx's Prescriptions: No Action atorvastatin 40 mg tablet 40 mg PO DAILY Qty: 90 RF: 4 tamsulosin 0.4 mg capsule 0.4 mg PO DAILY Qty: 90 RF: 4 azelastine 0.15 % (205.5 mcg) spray,non-aerosol 2 spray NEGRITA BID PRN (Reason: nasal congestion) Qty: 30 RF: 0 lisinopril 30 mg tablet 40 mg PO DAILY RF: 0 (DME) blood-glucose meter [BalluunTouch UltraMini] 1 EACH kit 1 ea Miscellaneous ONCE RF: 0 (DME) lancets 28 gauge misc 1 ea Miscellaneous DAILY Qty: 100 RF: 4 metoprolol succinate 100 mg tablet extended release 24 hr 100 mg PO DAILY Qty: 90 RF: 3 metformin 850 mg tablet 850 mg PO BID Qty: 180 RF: 4 amlodipine 10 mg tablet 10 mg PO QAM Qty: 90 RF: 4 Eliquis 5 mg tablet 5 mg PO BID Qty: 180 RF: 3 (DME) BalluunTouch Ultra Blue Test Strip Strip See Rx Instructions .ROUTE .MEDSUPPLY Qty: 100 RF: 3 hydrochlorothiazide 12.5 mg Capsule 12.5 mg PO DAILY RF: 0 aspirin 81 mg tablet,chewable 81 mg PO PRN RF: 0 Discharge Instructions Activity:: Activity as Tolerated Diet:: NPO Discharge Orders Discharge Orders: Discharge Order (Routine); Ordered 09/24/20 Ordered By: Yazmin Jeffery DS: Summary Time Spent with Patient providing and/or coordinating discharge services: Greater than 30 minutes Status at Discharge Functional status at discharge: independent ambulation Overall status at discharge: patient is not back to baseline Mental Status: mental status grossly normal Speech and Movement: speech and movement normal Mood: congruent mood and anxious mood Affect: normal affect Exam Narrative Exam Narrative: General: Pleasant elderly male, A&Ox3, anxious, does not appear to be in acute distress Neurological: A&Ox3, no focal deficits Psychiatric: anxious Skin: well healed CABG sternotomy scar; visible skin intact HEENT: Atraumatic, normocephalic, EOMI, MMM, clear oropharynx, no submandibular or cervical lymphadenopathy, no goiter or JVD Cardiovascular: irregularly irregular rhythm, no m/r/g Lungs: coarse breath sounds at B bases Gastrointestinal: soft, nontender, nondistended Genitourinary: deferred Extremities: trace edema BLE's, faint pedal pulses Psych Mental Status: mental status grossly normal Speech and Movement: speech and movement normal Mood: congruent mood and anxious mood Affect: normal affect DS: Data Vitals/I&O Vitals and I&O: Vital Signs Temperature 36.4 C L 09/24/20 15:34 Temperature Source Temporal Artery Scan 09/24/20 15:34 Pulse 99 H 09/24/20 19:53 Pulse 87 09/24/20 19:11 Respiratory Rate 15 09/24/20 19:53 Respiratory Effort 09/24/20 15:32 Respiratory Depth Normal 09/24/20 15:32 Respiratory Pattern Normal 09/24/20 15:32 Blood Pressure 137/69 09/24/20 19:53 Blood Pressure Mean 101 09/24/20 19:11 Blood Pressure Position Supine 09/24/20 15:34 Pulse Oximetry 97 09/24/20 19:53 Oxygen Delivery Method Room Air 09/24/20 15:34 Oxygen Flow Rate 0 09/24/20 15:34 Pain Level 0 09/24/20 19:53 Intake & Output 09/23/20 09/24/20 09/24/20 23:59 11:59 23:59 Intake Total 300 / 300 Balance 300 / 300 Weight 89 kg Intake: IV 300 / 300 Data Completed and Pending Completed studies during hospitalization [Text1]: CTA chest: 1. No pulmonary embolism or aortic dissection. 2. Cardiomegaly with mild patchy ground-glass densities suspicious of congestive heart failure pattern. Correlate clinically. No pleural effusion. 3. No focal consolidation. 4. 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 Labs on day of discharge: Labs from last 24 hours 09/24/20 09/24/20 09/24/20 22:00 20:00 19:56 WBC RBC Hgb Hct MCV MCH MCHC RDW Plt Count MPV Immature Gran % Neutrophils % Lymphocytes % Monocytes % Eosinophils % Basophils % Nucleated RBC % Absolute Neutrophils Absolute Lymphocytes Absolute Monocytes Absolute Eosinophils Absolute Basophils PT INR APTT VBG pH VBG pCO2 VBG pO2 VBG HCO3 VBG Total CO2 VBG O2 Saturation VBG Base Excess VBG Lactate Pending Sodium Potassium Chloride Carbon Dioxide Anion Gap BUN Creatinine Estimated GFR/1.73 m2 Glucose Calcium Magnesium Total Bilirubin AST ALT Alkaline Phosphatase Troponin I 3.08 H* NT-Pro-B Natriuret Pep Total Protein Albumin COVID-19 Source Nasal/nares SARS-CoV-2 (PCR) Pending 09/24/20 09/24/20 09/24/20 19:10 17:10 15:38 WBC RBC Hgb Hct MCV MCH MCHC RDW Plt Count MPV Immature Gran % Neutrophils % Lymphocytes % Monocytes % Eosinophils % Basophils % Nucleated RBC % Absolute Neutrophils Absolute Lymphocytes Absolute Monocytes Absolute Eosinophils Absolute Basophils PT INR APTT VBG pH 7.41 VBG pCO2 35 L VBG pO2 35 VBG HCO3 23 VBG Total CO2 20 L VBG O2 Saturation 70 VBG Base Excess -2 VBG Lactate 2.9 H* Sodium Potassium Chloride Carbon Dioxide Anion Gap BUN Creatinine Estimated GFR/1.73 m2 Glucose Calcium Magnesium Total Bilirubin AST ALT Alkaline Phosphatase Troponin I NT-Pro-B Natriuret Pep 858 H Total Protein Albumin COVID-19 Source SARS-CoV-2 (PCR) 09/24/20 09/24/20 09/24/20 15:38 15:38 15:38 WBC 8.41 RBC 4.65 Hgb 14.8 Hct 42.8 MCV 92.0 MCH 31.8 MCHC 34.6 RDW 12.1 Plt Count 210 MPV 10.1 Immature Gran % 0.6 Neutrophils % 76.1 Lymphocytes % 14.5 Monocytes % 7.3 Eosinophils % 1.1 Basophils % 0.4 Nucleated RBC % 0 Absolute Neutrophils 6.41 Absolute Lymphocytes 1.22 Absolute Monocytes 0.61 Absolute Eosinophils 0.09 Absolute Basophils 0.03 PT 12.0 H INR 1.2 H APTT 23.9 VBG pH VBG pCO2 VBG pO2 VBG HCO3 VBG Total CO2 VBG O2 Saturation VBG Base Excess VBG Lactate Sodium 140 Potassium 3.5 Chloride 101 Carbon Dioxide 19.2 L Anion Gap 19.8 H BUN 20 H Creatinine 1.4 H Estimated GFR/1.73 m2 48.76 Glucose 292 H Calcium 10.0 Magnesium 1.2 L Total Bilirubin 0.5 AST 13 L ALT 29 Alkaline Phosphatase 47 Troponin I < 0.05 NT-Pro-B Natriuret Pep Total Protein 7.9 Albumin 4.4 COVID-19 Source SARS-CoV-2 (PCR) [facility] Medical History (Updated 09/24/20 @ 22:12 by Yazmin Jeffery MD) Angina pectoris Atherosclerosis of [place] coronary artery coronary stent x 5 05/14 Echo 07/16-LVEF 68% Carotid artery stenosis right; stent placed 04/17 Diabetes mellitus (12/09/12) Essential hypertension (06/09/13) Surgical History History of intravascular stent placement Repair of inguinal hernia right Status post inguinal hernia repair Status post three vessel coronary artery bypass Status post tonsillectomy Stent placement 2004; 5 stents 1 stent to left renal artery TRIPLE BYPASS 1 CAROTID STENT ON RIGHT SIDE 5 STENTS TOTAL Family History Mother , AGE 80 Diabetes Heart disease Father , AGE 80 Heart disease Sister No problems noted. Brother No problems noted. Sister No problems noted. Brother Diabetes Heart disease Son , AGE 50 Alcohol abuse Depression Hypertension Daughter No problems noted. Daughter No problems noted. Social History Smoking/Tobacco Use Status: Former Tobacco Use Second Hand Exposure: No Smoking risk assessment performed?: Yes Alcohol Intake: current Alcohol Intake frequency: a few times a week Alcohol type: beer and wine Drug use: Never Substance use type: does not use Details: alcohol: t-1, couple beers Household members: spouse Do you need help understanding health information?: Never Sexually active: No Do you think of yourself as: straight/heterosexual Current gender identity: decline to answer What is your relationship status?: How often do you talk on the phone with friends or family?: decline to answer How often do you get together with friends or relatives?: decline to answer How often do you attend advent or mormon services?: decline to answer Do you belong to any clubs or organized social groups?: no Panel score (0-1 are the most socially isolated patients): 1 What type of physical activity do you participate in: none Frequency: does not exercise Rani/Baptism: Yazdanism Special rani needs: No Seatbelt use: always Drive intox or ride w/intox 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
[2020-09-24 22:19] LABS: Lactate 1.9 mmol/L (0.6-1.4)
[2020-09-24 23:03] LABS: COVID-19 PCR Negative (Negative)
[2020-09-25] VITALS: PULSE 75; O2SAT 94
[2020-09-25 00:01] VITALS: BP 131/73; PULSE 68; O2SAT 95
[2020-09-25 00:02] VITALS: PULSE 71; O2SAT 94
--- NOTE | 2020-09-25 00:25 | NUR.NOTE ---
Nursing Note: This nurse assumed care of pt at 2300; bedside rounding completed with Romeo Parra RN. Pt A&O, pleasant, conversing with staff, in no distress, no complaints of chest pain, pressure, or shortness of breath. Full assessment not completed at this time r/t preparing for transfer. [facility], pt transferred with heparin gtts @10ml/hr. [place] and pt departed at 0014. Report called to at [facility] [facility] at 0025.
== END 2020-09-25 00:14 | disposition short-term general hospital (02) | DRG 281 ==
LOC: ER 18:57 → ICU 20:33
PROVIDERS: Admitting Provider Internal Medicine; Emergency Provider Physician Assistant; PCP Family Medicine; Visit Provider Internal Medicine
DX: I21.4 Non-ST elevation (NSTEMI) myocardial infarction (principal); J81.1 Chronic pulmonary edema; Z20.822 Contact with and (suspected) exposure to COVID-19; I25.10 Atherosclerotic heart disease of native coronary artery without angina pectoris; I48.91 Unspecified atrial fibrillation; E83.42 Hypomagnesemia; E11.9 Type 2 diabetes mellitus without complications; I10 Essential (primary) hypertension; E78.5 Hyperlipidemia, unspecified; Z95.1 Presence of aortocoronary bypass graft; Z79.01 Long term (current) use of anticoagulants; Z86.73 Personal history of transient ischemic attack (TIA), and cerebral infarction without residual deficits
CPT/HCPCS: 36415; 71275; 80048; 80053; 80061; 82805; 87635; 93005; 96361; 96365; 96366; 99285; 99291; 99292; 83605; 83735; 83880; 84443; 84484; 85025; 85610; 85730; 93010

== ENCOUNTER 2020-10-14 09:52 | Outpatient (CLI) | payer MEDICARE, SELFPAY ==
[2020-10-14 13:10] LABS: Hemoglobin A1C 8.1 % (<5.7)
[2020-10-14 13:16] LABS: Calculated LDL 60 mg/dL (<100); Cholesterol 135 mg/dL (<200); HDL Cholesterol 41 mg/dL (40-60); Triglyceride 171 mg/dL (<150)
[2020-10-14 14:21] LABS: COMMENT (LAB VIEW ONLY) 60.21 mg/dL; Microalb ug/mg Crea 5.8 ug/mg Cr
== END 2020-10-14 09:53 | disposition home or self-care (01) ==
LOC: LOS 09:53
PROVIDERS: PCP Family Medicine; Visit Provider Family Medicine
DX: E78.5 Hyperlipidemia, unspecified (principal); E11.65 Type 2 diabetes mellitus with hyperglycemia
CPT/HCPCS: 36415; 80061; 82043; 82570; 83036

== ENCOUNTER 2020-11-04 10:00 | Outpatient (RCR) | payer MEDICARE, SELFPAY | END 2020-11-07 23:59 | disposition home or self-care (01) | LOC: CR 10:00 | PROVIDERS: PCP Family Medicine; Visit Provider Family Medicine | DX: Z51.89 Encounter for other specified aftercare (principal); I25.2 Old myocardial infarction; Z95.5 Presence of coronary angioplasty implant and graft | CPT/HCPCS: S9472 ==

== ENCOUNTER 2020-12-07 10:00 | Outpatient (RCR) | payer MEDICARE, SELFPAY | END 2020-12-07 23:59 | disposition home or self-care (01) | LOC: CR 10:00 | PROVIDERS: PCP Family Medicine; Visit Provider Family Medicine | DX: Z51.89 Encounter for other specified aftercare (principal); I25.2 Old myocardial infarction; Z95.5 Presence of coronary angioplasty implant and graft | CPT/HCPCS: S9472 ==

== ENCOUNTER 2020-12-23 10:10 | Outpatient (CLI) | payer MEDICARE, SELFPAY ==
--- NOTE | 2020-12-23 09:30 | DI.RAD_ITS ---
Exam(s) XR CERVICAL SPINE COMP 4-5V EXAM: XR CERVICAL SPINE COMP 4-5V CLINICAL HISTORY: pain and burning in bilateral upper extermity. TECHNIQUE: 2D digital imaging was performed. COMPARISON: No exams were available for comparison FINDINGS: BONES: No fracture or destructive lesion. Vertebral bodies are unremarkable. Endplate osteophytes C5- 6 and C6-7 projecting mainly anteriorly. Facet degenerative changes are noted throughout. There is moderate right neural foraminal narrowing at C3-4. Minimal neural foraminal narrowing is seen C3-4 a nd C4-5 on the left. DISKS: Intervertebral disc spaces are maintained. ALIGNMENT: Cervical spinal alignment is within normal limits. The odontoid and atlantoaxial articulat ions are normal. SOFT TISSUE: Stent in right carotid. Sternal wires. The lung apices are clear. IMPRESSION: Degenerative changes of the facet joints causing neural foraminal narrowing greatest on the right at C3-4. DATA REPOSITORY: RADIATION DOSE DELIVERED:
== END 2020-12-23 10:11 | disposition home or self-care (01) ==
LOC: DIORS 10:10
PROVIDERS: PCP Family Medicine; Referring Provider Family Medicine; Visit Provider Student in an Organized Health Care Education/Training Program
DX: M54.12 Radiculopathy, cervical region (principal); G62.9 Polyneuropathy, unspecified; Z79.899 Other long term (current) drug therapy; M79.601 Pain in right arm; M79.602 Pain in left arm; Z98.890 Other specified postprocedural states
CPT/HCPCS: 99213; 72050

== ENCOUNTER 2021-01-06 10:00 | Outpatient (RCR) | payer MEDICARE, SELFPAY | END 2021-01-07 23:59 | disposition home or self-care (01) | LOC: CR 10:00 | PROVIDERS: PCP Family Medicine; Visit Provider Family Medicine | DX: Z51.89 Encounter for other specified aftercare (principal); I25.2 Old myocardial infarction; Z95.5 Presence of coronary angioplasty implant and graft | CPT/HCPCS: S9472 ==

== ENCOUNTER 2021-02-01 10:00 | Outpatient (RCR) | payer MEDICARE, SELFPAY | END 2021-02-07 23:59 | disposition home or self-care (01) | LOC: CR 10:00 | PROVIDERS: PCP Family Medicine; Visit Provider Family Medicine | DX: Z51.89 Encounter for other specified aftercare (principal); I25.2 Old myocardial infarction; Z95.5 Presence of coronary angioplasty implant and graft | CPT/HCPCS: S9472 ==

== ENCOUNTER 2021-03-17 08:38 | Outpatient (CLI) | payer MEDICARE, SELFPAY ==
--- NOTE | 2021-03-17 08:30 | DI.RAD_ITS ---
Exam(s) XR SHOULDER RT COMPLETE 2+V EXAM: XR SHOULDER RT COMPLETE 2+V CLINICAL HISTORY: right shoulder and arm pain TECHNIQUE: COMPARISON: No exams were available for comparison FINDINGS: Two views were obtained. There may be slight narrowing of the cartilaginous joint space of the gleno humeral joint. Humerus is normally positioned with respect to the glenoid. There are moderate hyper trophic osteophytes present at the acromioclavicular and glenohumeral joints. No other significant b lee or soft tissue abnormality seen. IMPRESSION: DJD of acromioclavicular and glenohumeral joints as described above. RADIATION DOSE DELIVERED: Total DLP
== END 2021-03-17 08:39 | disposition home or self-care (01) ==
LOC: DIORS 08:39
PROVIDERS: PCP Family Medicine; Referring Provider Family Medicine; Visit Provider Student in an Organized Health Care Education/Training Program
DX: M25.511 Pain in right shoulder (principal); M67.911 Unspecified disorder of synovium and tendon, right shoulder; G89.29 Other chronic pain; G62.9 Polyneuropathy, unspecified; M79.601 Pain in right arm
CPT/HCPCS: 20610; 73030; J1040

== ENCOUNTER → 2021-10-31 01:42 | Outpatient (CLI) | payer MEDICARE, SELFPAY ==
--- NOTE | 2021-10-31 07:30 | DI.MRI_ITS ---
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 COMPARISON: No exams were available for comparison FINDINGS: MR examination cervical spine was performed according to the usual protocol. Posterior fossa structur es appear intact. No bony signal abnormality seen. No disc herniation identified in the cervical region. There are slight disc bulges at C4-5 and C5-6 without evidence of a focal disc herniation or neural impingement. The bony spinal canal and neural foramina appear intact. Spinal cord is of normal diameter and shows normal signal throughout. IMPRESSION: No focal abnormality seen. DATA REPOSITORY:
== END ==
PROVIDERS: PCP Family Medicine; Visit Provider Family Medicine
DX: M79.621 Pain in right upper arm; M79.622 Pain in left upper arm; M50.321 Other cervical disc degeneration at C4-C5 level; M50.322 Other cervical disc degeneration at C5-C6 level
CPT/HCPCS: 72141

== ENCOUNTER 2022-02-19 03:52 | Outpatient (CLI) | payer MEDICARE, SELFPAY ==
[2022-02-19 12:27] LABS: Anion Gap 11.2 mmol/L (3-11); BUN 28 mg/dL (7-18); CO2 23.8 mmol/L (21.0-32.0); CREATININE 1.3 mg/dL (0.70-1.30); Chloride 106 mmol/L (98-107); Estimated GFR 55.19 (mL/min/1.73m2); Glucose 146 mg/dL (74-106); Potassium 4.5 mmol/L (3.5-5.1); Sodium 141 mmol/L (136-145)
== END 2022-02-19 03:53 | disposition home or self-care (01) ==
PROVIDERS: PCP Family Medicine; Visit Provider Family Medicine
DX: E87.1 Hypo-osmolality and hyponatremia (principal)
CPT/HCPCS: 36415; 80048

== ENCOUNTER 2022-10-24 13:32 | Outpatient (CLI) | payer MEDICARE, SELFPAY ==
--- NOTE | 2022-10-24 12:45 | DI.RAD_ITS ---
Exam(s) XR SHOULDER LT COMPLETE 2+V EXAM: XR SHOULDER LT COMPLETE 2+V CLINICAL HISTORY: left shoulder pain, M25.512. TECHNIQUE: 2D digital imaging was performed. Three views. COMPARISON: CR XR SHOULDER RT COMPLETE 2+V from 03/17/2021 FINDINGS: BONES: No acute fracture is present. No bony destructive lesion is seen. Subchondral cysts in the hu meral head. Sternal wires. Prior CABG. JOINTS: No dislocation present. Spurring at the AC joint and undersurface of the acromion. Spurring at the greater tuberosity and inferior glenoid. No significant glenohumeral joint space narrowing. SOFT TISSUE: Normal. IMPRESSION: Degenerative changes. DATA REPOSITORY: RADIATION DOSE DELIVERED:
== END 2022-10-24 13:52 ==
LOC: DI 13:43
PROVIDERS: PCP Family Medicine; Visit Provider Family Medicine
DX: M25.512 Pain in left shoulder (principal)
CPT/HCPCS: 73030

== ENCOUNTER 2023-03-27 10:03 | Outpatient (CLI) | payer MEDICARE, SELFPAY ==
[2023-03-27 12:17] LABS: HCT 44.3 % (40.0-50.0); HGB 15.1 g/dL (13.5-17.5); MCHC 34.1 % (32.0-36.0); MCV 97 fL (80-95); MPV 10.2 fL (8.0-11.0); Platelet Count 206 10^3/uL (130-400); RBC 4.58 10^6/uL (4.36-5.78); RDW 12.7 % (11.8-14.1); RDW-SD 45.1 fL
[2023-03-27 12:28] LABS: Anion Gap 13.7 mmol/L (3-11); BUN 32 mg/dL (7-18); CO2 21.3 mmol/L (21.0-32.0); CREATININE 1.5 mg/dL (0.70-1.30); Calcium 10.3 mg/dL (8.5-10.1); Chloride 104 mmol/L (98-107); Estimated GFR 46.19 (mL/min/1.73m2); Glucose 180 mg/dL (74-106); Potassium 4.3 mmol/L (3.5-5.1); Sodium 139 mmol/L (136-145)
== END 2023-03-27 10:04 | disposition home or self-care (01) ==
PROVIDERS: PCP Family Medicine; Visit Provider Family Medicine
DX: R53.83 Other fatigue (principal); E87.1 Hypo-osmolality and hyponatremia
CPT/HCPCS: 36415; 80048; 85027

== ENCOUNTER 2023-04-06 13:23 | Inpatient (IN) | payer MEDICARE, SELFPAY ==
[2023-04-06] VITALS (30 sets, daily range): BP systolic 114–194; BP diastolic 54–117; PULSE 68–124; RESP 14–28; TEMP 36.3–36.8; O2SAT 96–99
--- NOTE | 2023-04-06 13:15 | RT.EKG_ITS ---
APPROVED REPORT Exam: Resting ECG Reason for Exam: afib Patient Location: E HR:110 bpm ECG Measurements Heart Rate 110 AXIS NC [id number] P [id number] QRSd 89 QRS 6 QT 343 T 157 QTc [address] depressions not significantly changed from prior
--- NOTE | 2023-04-06 13:45 | DI.RAD_ITS ---
Exam(s) XR PORTABLE CHEST AP EXAM: XR PORTABLE CHEST AP CLINICAL HISTORY: chest pain TECHNIQUE: 2D digital imaging was performed. COMPARISON: CT CT CHEST PE CTA from 09/24/2020 FINDINGS: Exam limited by poor pulmonary inflation and under penetration. Mild respiratory motion. LUNGS: Clear. No pleural abnormality seen. HEART: Enlarged. Status post CABG. AORTA: Normal diameter. BONES: Unremarkable for age. Soft tissues: Unremarkable. IMPRESSION: No acute findings. DATA REPOSITORY: RADIATION DOSE DELIVERED:
--- NOTE | 2023-04-06 14:00 | ED.GENADUL_ITS ---
Discharge Plan Disposition Patient Disposition: Admit to [facility] Condition: Stable Discharge Details Clinical Impression: Essential hypertension, Elevated troponin, Atrial fibrillation with rapid ventricular response Primary Care Provider: Wesley Negrete ED Provider: Fred Riddle Home Meds and New Rx's Prescriptions: No Action Eliquis 5 mg tablet 5 mg PO BID Qty: 180 3RF atorvastatin 40 mg tablet 40 mg PO DAILY Qty: 90 4RF lisinopril 20 mg tablet 40 mg PO DAILY Qty: 180 3RF metoprolol succinate 100 mg tablet extended release 24 hr 100 mg PO DAILY Qty: 90 3RF sertraline 50 mg tablet 50 mg PO DAILY Qty: 30 2RF azelastine 205.5 mcg (0.15 %) spray,non-aerosol 2 spray NEGRITA BID PRN (Reason: nasal congestion) Qty: 30 2RF Rx Instructions: administer into each nostril metformin 850 mg tablet 850 mg PO BID Qty: 180 3RF Patient Comments: pt. states he only takes it once a day hydrochlorothiazide 12.5 mg capsule 25 mg PO DAILY Qty: 90 3RF Rx Instructions: dose increase 03/27/23 (DME) blood-glucose meter [OneTouch UltraMini] 1 EACH kit 1 ea Miscellaneous ONCE Rx Instructions: DX:250.0 (DME) lancets 28 gauge misc 1 ea Miscellaneous DAILY Qty: 100 4RF Rx Instructions: ONE TOUCH 1 daily (DME) OneTouch Ultra Blue Test Strip Strip See Rx Instructions .ROUTE .MEDSUPPLY Qty: 100 3RF Rx Instructions: test once/day Medical Decision Making Emergent evaluation of chest pain. Patient has high risk with multiple medical comorbidities. On initial evaluation he is found to be in A-fib with RVR. Will give diltiazem for rate control. Suspect that his rate abnormalities might be contributing to his chest pain. Plan for rate control, will check blood work and monitor on telemetry. Lab work reviewed concerned for significantly elevated troponin and BNP. This troponin elevation could be demand from being in RVR. Chest x-ray reviewed and independently interpreted, cardiomegaly noted, mild interstitial edema without pleural effusion, sternotomy wires noted. IV Lasix given to be given diuresis. Patient has remained rate controlled and symptoms resolved after this in addition to nitro and aspirin. Given history and risk factors will require hospitalization. Discussed with hospitalist. At this time will not initiate ACS protocol, will trend troponin if second troponin is elevated, may benefit from change in strategy. Medical Records Medical records reviewed: Yes I reviewed the patient's medical records. Lab Data Lab results reviewed: Yes I reviewed the patient's lab results. ECG Data Attestation: I personally reviewed and interpreted this ECG (s) as follows: Prior ECG tracings: available for review Interpretation: A-fib, RVR at 110, nonspecific ST depressions not significantly changed from prior HPI General Date/Time Provider Initiated Documentation: 04/06/23 13:57 . Limitations to Documentation: no limitations . Information obtained by: patient . HPI Narrative: 82-year-old gentleman with past medical history of diabetes, hypertension, A-fib on anticoagulant, CAD (triple bypass) presents for evaluation of chest pain. Reports that it started today. Is been intermittent. Radiates across his chest, not associated with diaphoresis, nausea or vomiting or shortness of breath. He is associating it it with being upset with his . He reports compliance with his medications. He reports his pain right now is 3 out of 10. Related Data Home Medications Medication Instructions Recorded Confirmed blood-glucose meter (OneTouch 12/01/12 03/27/23 UltraMini kit) lancets 28 gauge #100 ea 07/02/19 03/27/23 blood sugar diagnostic #100 ea 09/15/21 03/27/23 apixaban 5 mg tablet (Eliquis) 5 mg PO BID #180 tabs 07/17/22 04/06/23 atorvastatin 40 mg tablet 40 mg PO DAILY #90 tab-caps 12/19/22 04/06/23 lisinopril 20 mg tablet 40 mg (2 x 20 mg) PO DAILY #180 12/19/22 04/06/23 tabs metoprolol succinate 100 mg 100 mg PO DAILY #90 tab-caps 12/19/22 04/06/23 tablet,extended release 24 hr azelastine 205.5 mcg (0.15 %) 2 spray intranasal BID PRN nasal 03/27/23 04/06/23 nasal spray congestion #30 mL hydrochlorothiazide 12.5 mg capsule 25 mg (2 x 12.5 mg) PO DAILY #90 03/27/23 04/06/23 caps metformin 850 mg tablet 850 mg PO BID #180 tab-caps 03/27/23 04/06/23 sertraline 50 mg tablet 50 mg PO DAILY #30 tabs 03/27/23 04/06/23 Previous Rx's Medication Instructions Recorded lancets 28 gauge #100 ea 07/02/19 blood sugar diagnostic #100 ea 09/15/21 apixaban 5 mg tablet (Eliquis) 5 mg PO BID #180 tabs 07/17/22 atorvastatin 40 mg tablet 40 mg PO DAILY #90 tab-caps 12/19/22 lisinopril 20 mg tablet 40 mg (2 x 20 mg) PO DAILY #180 12/19/22 tabs metoprolol succinate 100 mg 100 mg PO DAILY #90 tab-caps 12/19/22 tablet,extended release 24 hr azelastine 205.5 mcg (0.15 %) 2 spray intranasal BID PRN nasal 03/27/23 nasal spray congestion #30 mL hydrochlorothiazide 12.5 mg capsule 25 mg (2 x 12.5 mg) PO DAILY #90 03/27/23 caps metformin 850 mg tablet 850 mg PO BID #180 tab-caps 03/27/23 sertraline 50 mg tablet 50 mg PO DAILY #30 tabs 03/27/23 Allergies Allergy/AdvReac Type Severity Reaction Status Date / Time amlodipine AdvReac Intermediate edema Verified 04/06/23 13:56 General Stated Complaint: Chest Pain HIEN: 3 PFSH All Active Problems Elevated troponin (Acute) Allergic rhinitis (Acute) Diabetes mellitus (Chronic 12/09/12) Atherosclerosis of [place] coronary artery (Chronic) coronary stent x 5 05/14 Echo 07/16-LVEF 68% Left shoulder pain (Acute) Depression (Chronic) Bilateral lower extremity edema (Acute) Bilateral arm pain (Acute) Financial difficulties (Acute) Dysfunction of right rotator cuff (Acute) Right shoulder pain (Acute) Peripheral neuropathy (Acute) Cervical radiculopathy (Acute) Mood disorder (Acute) Discharge planning issues (Acute) DVT prophylaxis (Acute) Hyperlipidemia (Chronic) NSTEMI (non-ST elevated myocardial infarction) (Acute) Atrial fibrillation with rapid ventricular response (Acute) Hypomagnesemia (Acute) History of congestive heart failure (Acute) Carpal tunnel syndrome of left wrist (Acute) Trigger finger, left middle finger (Acute) Dupuytren's contracture of left hand (Acute) small finger Cataract, left (Acute) Cataracts, bilateral (Acute) Bilateral carpal tunnel syndrome (Acute) Atherosclerotic renal artery stenosis (Chronic 05/09/04) stent placed Hydrocele (Chronic) left Patellofemoral syndrome, 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) Retinopathy (Chronic 10/24/16) 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[facility];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 Shoulder pain (Chronic) bursitis right Reactive depression (situational) (Acute) BPH w urinary obs/LUTS (Chronic) Carpal tunnel syndrome of right wrist (Acute) Angina pectoris (Chronic) Carotid artery stenosis (Chronic) right; stent placed 04/17 Essential hypertension (Chronic 06/09/13) Status post three vessel coronary artery bypass (Chronic) Surgical History History of intravascular stent placement Status post inguinal hernia repair Status post tonsillectomy TRIPLE BYPASS 1 CAROTID STENT ON RIGHT SIDE 5 STENTS TOTAL Stent placement 2004; 5 stents 1 stent to left renal artery Repair of inguinal hernia right Family History Mother , AGE 80 Diabetes Heart disease Father , AGE 80 Heart disease Sister No problems noted. Brother No problems noted. Sister No problems noted. Brother Diabetes Heart disease Son , AGE 50 Alcohol abuse Depression Hypertension Daughter No problems noted. Daughter No problems noted. Social History Smoking/Tobacco Use Status: Former Tobacco Use Second Hand Exposure: No Smoking risk assessment performed?: Yes Drug use: Never Substance use type: does not use Details: alcohol: t-1, couple beers Caregiver/Support person: No Household members: spouse Housing: apartment Do you need help understanding health information?: Never Pets and animals: Yes Pets and animals: cat(s) Sexually active: No Do you think of yourself as: straight/heterosexual Current gender identity: male and decline to answer What is your relationship status?: How often do you talk on the phone with friends or family?: decline to answer How often do you get together with friends or relatives?: decline to answer How often do you attend baptist or islam services?: decline to answer Do you belong to any clubs or organized social groups?: no Panel score (0-1 are the most socially isolated patients): 1 What type of physical activity do you participate in: none Frequency: does not exercise Rani/Religious: Hoahaoism Special rani needs: No Seatbelt use: always Drive intox or 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 1+ edema bilaterally RESP: Unlabored respiratory effort, Clear to auscultation bilaterally No wheezes rales or rhonchi GI: Soft, Nontender, Nondistended, No organomegaly MSK: Extremities with full range of motion, no deformity or TTP SKIN: Warm, Dry. No rashes or lesions. NEURO: No focal neurologic deficits. outside food server II-XII grossly intact Sensation grossly intact Normal strength throughout PSYCH: Appropriate mood and affect Course Vital Signs Vital signs: Vital Signs Temperature 36.8 C 04/06/23 13:32 Pulse 115 H 04/06/23 13:32 Respiratory Rate 22 04/06/23 13:32 Blood Pressure 132/80 04/06/23 13:32 Pulse Oximetry 96 04/06/23 13:32 Temperature 36.8 C 04/06/23 13:32 Pulse 115 H 04/06/23 13:32 Respiratory Rate 18 04/06/23 13:54 Respiratory Effort Normal, Non-Labored 04/06/23 13:54 Respiratory Depth Normal 04/06/23 13:54 Respiratory Pattern Normal 04/06/23 13:54 Blood Pressure 132/80 04/06/23 13:32 Blood Pressure Position Supine 04/06/23 13:32 Pulse Oximetry 96 04/06/23 13:32 Oxygen Delivery Method Room Air 04/06/23 13:32 Oxygen Flow Rate 0 04/06/23 13:32 Pain Level 5 04/06/23 13:32 Critical Care Time Critical Care Time Critical Care Time: Yes Total Critical Care Time: 33 Attestation: CRITICAL CARE Upon my evaluation, this patient had a high probability of imminent or life- threatening deterioration due to cardiac dysrhythmia, CHF which required my direct attention, intervention, and personal management. I have personally provided 33 minutes of critical care time exclusive of time spent on separately billable procedures. Time includes review of laboratory data, radiology results, discussion with consultants, and monitoring for potential decompensation. Interventions were performed as documented above
[2023-04-06] MEDS: dilTIAZem 25 MG/5 ML VIAL 10 MG IVP (14:07)
[2023-04-06] MEDS: nitroGLYcerin 0.4 MG TAB SL (14:08)
[2023-04-06] MEDS: Aspirin 81 MG CHEW 324 MG CH (14:08)
[2023-04-06 14:09] LABS: Absolute Basophil Count 0.05 10^3/uL (0.0-0.2); Absolute Eosinophil Count 0.06 10^3/uL (0.0-0.7); Absolute Lymphocyte Count 1.03 10^3/uL (1.2-3.4); Absolute Monocyte Count 0.62 10^3/uL (0.1-0.8); Absolute Neutrophil Count 6.04 10^3/uL (1.2-6.7); Basophils % 0.6; Eosinophils % 0.8; HCT 43.7 % (40.0-50.0); HGB 15.5 g/dL (13.5-17.5); Immature Grans % 1.3; MCH 33.5 pg (27.0-33.0); MCHC 35.5 % (32.0-36.0); MCV 94 fL (80-95); MPV 10.5 fL (8.0-11.0); Monocytes % 7.8; Neutrophils % 76.5; Platelet Count 201 10^3/uL (130-400); RBC 4.63 10^6/uL (4.36-5.78); RDW 12.2 % (11.8-14.1); RDW-SD 42.5 fL
[2023-04-06 14:47] LABS: ALT 28 U/L (16-63); AST 23 U/L (15-37); Albumin 4.4 g/dL (3.4-5.0); Alkaline Phosphatase 55 U/L (46-116); BUN 39 mg/dL (7-18); Bilirubin, Total 0.6 mg/dL (0.2-1.0); CREATININE 1.6 mg/dL (0.70-1.30); Calcium 10.2 mg/dL (8.5-10.1); Chloride 103 mmol/L (98-107); Estimated GFR 42.75 (mL/min/1.73m2); Glucose 161 mg/dL (74-106); Magnesium 1.6 mg/dL (1.8-2.4); NT-proBNP 882 pg/mL (<300); Potassium 4.3 mmol/L (3.5-5.1); Sodium 138 mmol/L (136-145); Total Protein 7.9 g/dL (6.4-8.2)
[2023-04-06 14:49] LABS: Troponin I 179 ng/L (<or=60)
[2023-04-06] MEDS: Furosemide 100 MG/10 ML VIAL 80 MG IVP (15:01)
[2023-04-06 15:06] LABS: Source Nasal/Nares
[2023-04-06 15:35] LABS: COVID-19 PCR Negative (Negative)
--- NOTE | 2023-04-06 15:40 | DI.VRAD_ITS ---
PROCEDURE INFORMATION: Exam: XR Chest Exam date and time: 04/06/2023 2:53 PM Age: 82 years old Clinical indication: Other: Chest pain TECHNIQUE: Imaging protocol: Radiologic exam of the chest. Views: 1 view. COMPARISON: CT CHEST PE CTA 09/24/2020 5:33 PM FINDINGS: Lungs: Unremarkable. No consolidation. Pleural spaces: Unremarkable. No pleural effusion. No pneumothorax. Heart/Mediastinum: Unremarkable. No cardiomegaly. Bones/joints: Median sternotomy wires. IMPRESSION: No acute findings. Dictated and Authenticated by: Mariola Stephenson MD. Ordering:[facility] Janessa Hinds MD
[2023-04-06 17:06] LABS: Troponin I 919 ng/L (<or=60)
[2023-04-06] MEDS: Insulin Aspart 300 UNITS/3 ML PEN SC (17:25)
[2023-04-06] MEDS: MAGNESIUM SULFATE 4 GM/100 ML BAG IVPB (17:26)
--- NOTE | 2023-04-06 17:41 | W.PM.HP.N ---
Date of service: 04/06/23 Time of Service: 17:41 Assessment and Plan Assessment and plan (1) Elevated troponin: Status: Acute Assessment and plan: Initial troponin of 179. Increased to 919 Demand ischemia vs ACS Discussed with [facility] cardiology. Recommended heparin drip and transfer for cardiac catheterization. (2) Diabetes mellitus: Status: Chronic Assessment and plan: Pt on metformin; hold Correction dosing of insulin AC accuchecks. 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 History of triple bypass and subsequent PCI. (4) Atrial fibrillation with rapid ventricular response: Status: Acute Assessment and plan: Improved HR with single dose of IV diltiazem. [facility] cardiology recommends or metprolol 12.5mg Q6H (on metoprolol ER 100mg daily at home;holding). Telemetry. On Eliquis but will now hold and place on heparin drip. (5) Hypomagnesemia: Status: Acute Assessment and plan: IV replacement and monitor. (6) Atherosclerotic renal artery stenosis: Status: Chronic Assessment and plan: Previous stenting. History of Present Illness History of Present Illness Chief Complaint: Chest pain Narrative: This is an 82 yo male with a PMH of CAD with remote CABG and PCI, carotid stenosis with stent, renal artery stenosis with stent, chronic afib on Eliquis, HTN, DM2. He presented to the ED with c/o CP; earlier in the day after arguing with his . The pain had been intermittent, across the precordium. No diaphoresis, N/V, shortness of breath. Pain in the ED was 3/10. EKG showed afib with ventricular rate of 110. Nonspecific ST depressions noted on prior EKG. He was administered 10mg IV dilitiazem and HR improved into the low 90's and his CP improved but did not completely subside. CBC normal. Na, K normal. Mg 1.6. BUN 39. Creatinine 1.6. Admitted for further evaluation and treatment; r/o PR vs demand ischemia. Review of Systems All systems reviewed & are unremarkable except as noted in HPI and below PFSH All Active Problems Elevated troponin (Acute) Allergic rhinitis (Acute) Diabetes mellitus (Chronic 12/09/12) Atherosclerosis of [place] coronary artery (Chronic) coronary stent x 5 05/14 Echo 07/16-LVEF 68% Left shoulder pain (Acute) Depression (Chronic) Bilateral lower extremity edema (Acute) Bilateral arm pain (Acute) Financial difficulties (Acute) Dysfunction of right rotator cuff (Acute) Right shoulder pain (Acute) Peripheral neuropathy (Acute) Cervical radiculopathy (Acute) Mood disorder (Acute) Discharge planning issues (Acute) DVT prophylaxis (Acute) Hyperlipidemia (Chronic) NSTEMI (non-ST elevated myocardial infarction) (Acute) Atrial fibrillation with rapid ventricular response (Acute) Hypomagnesemia (Acute) History of congestive heart failure (Acute) Carpal tunnel syndrome of left wrist (Acute) Trigger finger, left middle finger (Acute) Dupuytren's contracture of left hand (Acute) small finger Cataract, left (Acute) Cataracts, bilateral (Acute) Bilateral carpal tunnel syndrome (Acute) Atherosclerotic renal artery stenosis (Chronic 05/09/04) stent placed Hydrocele (Chronic) left Patellofemoral syndrome, 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) Retinopathy (Chronic 10/24/16) 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[facility];10/18/16 Shoulder pain (Chronic) bursitis right Reactive depression (situational) (Acute) BPH w urinary obs/LUTS (Chronic) Carpal tunnel syndrome of right wrist (Acute) Angina pectoris (Chronic) Carotid artery stenosis (Chronic) right; stent placed 04/17 Essential hypertension (Chronic 06/09/13) Status post three vessel coronary artery bypass (Chronic) Surgical History History of intravascular stent placement Status post inguinal hernia repair Status post tonsillectomy TRIPLE BYPASS 1 CAROTID STENT ON RIGHT SIDE 5 STENTS TOTAL Stent placement 2004; 5 stents 1 stent to left renal artery Repair of inguinal hernia right Family History Mother , AGE 80 Diabetes Heart disease Father , AGE 80 Heart disease Sister No problems noted. Brother No problems noted. Sister No problems noted. Brother Diabetes Heart disease Son , AGE 50 Alcohol abuse Depression Hypertension Daughter No problems noted. Daughter No problems noted. Social History Smoking/Tobacco Use Status: Former Tobacco Use Second Hand Exposure: No Smoking risk assessment performed?: Yes Drug use: Never Substance use type: does not use Details: alcohol: t-1, couple beers Caregiver/Support person: No Household members: spouse Housing: house Do you need help understanding health information?: Never Pets and animals: Yes Pets and animals: cat(s) Sexually active: No Do you think of yourself as: straight/heterosexual Current gender identity: male and decline to answer What is your relationship status?: How often do you talk on the phone with friends or family?: decline to answer How often do you get together with friends or relatives?: decline to answer How often do you attend spiritism or anabaptist services?: decline to answer Do you belong to any clubs or organized social groups?: no Panel score (0-1 are the most socially isolated patients): 1 What type of physical activity do you participate in: none Frequency: does not exercise Rani/Yarsanism: Pentecostalism Special rani needs: No Seatbelt use: always Drive intox or ride w/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: No Do you feel safe at home: Yes Do you feel safe in your relationship?: Yes Meds Allergies and Home Medications Allergies Allergy/AdvReac Type Severity Reaction Status Date / Time amlodipine AdvReac Intermediate edema Verified 04/06/23 16:04 Home Medications Medication Instructions Recorded Confirmed Type blood-glucose meter (OneTouch 12/01/12 03/27/23 History UltraMini kit) lancets 28 gauge #100 ea 07/02/19 03/27/23 Rx blood sugar diagnostic #100 ea 09/15/21 03/27/23 Rx apixaban 5 mg tablet (Eliquis) 5 mg PO BID #180 tabs 07/17/22 04/06/23 Rx atorvastatin 40 mg tablet 40 mg PO DAILY #90 tab-caps 12/19/22 04/06/23 Rx lisinopril 20 mg tablet 40 mg (2 x 20 mg) PO DAILY #180 12/19/22 04/06/23 Rx tabs metoprolol succinate 100 mg 100 mg PO DAILY #90 tab-caps 12/19/22 04/06/23 Rx tablet,extended release 24 hr azelastine 205.5 mcg (0.15 %) 2 spray intranasal BID PRN nasal 03/27/23 04/06/23 Rx nasal spray congestion #30 mL hydrochlorothiazide 12.5 mg capsule 25 mg (2 x 12.5 mg) PO DAILY #90 03/27/23 04/06/23 Rx caps metformin 850 mg tablet 850 mg PO BID #180 tab-caps 03/27/23 04/06/23 Rx sertraline 50 mg tablet 50 mg PO DAILY #30 tabs 03/27/23 04/06/23 Rx Exam Narrative Exam Narrative: General: Well-developed, no acute distress HEENT: EYES: PERRL, no conjunctival injection. MMM CVS: Irregularly irregular, tachycardic 1-2+ edema bilaterally RESP: +/- fine basilar crackles, otherwise clear and nonlabored breathing. GI: Soft, Nontender, Nondistended, No organomegaly Skin: Warm, Dry. No rashes or lesions. NEURO: No focal neurologic deficits. PSYCH: Appropriate mood and affect Results Labs 04/06/23 13:55 04/06/23 13:55 Labs: Laboratory Results - last 24 hr 04/06/23 04/06/23 04/06/23 13:55 15:02 16:36 WBC 7.90 RBC 4.63 Hgb 15.5 Hct 43.7 MCV 94 MCH 33.5 H MCHC 35.5 RDW 12.2 Plt Count 201 MPV 10.5 Immature Gran % 1.3 Neutrophils % 76.5 Lymphocytes % 13.0 Monocytes % 7.8 Eosinophils % 0.8 Basophils % 0.6 Nucleated RBC % 0.0 Absolute Neutrophils 6.04 Absolute Lymphocytes 1.03 L Absolute Monocytes 0.62 Absolute Eosinophils 0.06 Absolute Basophils 0.05 Sodium 138 Potassium 4.3 Chloride 103 Carbon Dioxide 21.0 Anion Gap 14.0 H BUN 39 H Creatinine 1.6 H Est GFR (CKD-EPI 2020) 42.75 Glucose 161 H Calcium 10.2 H Magnesium 1.6 L Total Bilirubin 0.6 AST 23 ALT 28 Alkaline Phosphatase 55 Troponin I 179 H* 919 H* NT-Pro-B Natriuret Pep 882 H Total Protein 7.9 Albumin 4.4 COVID-19 Source Nasal/Nares SARS-CoV-2 (PCR) Negative Last Vital Signs Temp 36.8 C 04/06/23 13:32 Pulse 91 H 04/06/23 16:05 Resp 22 04/06/23 16:05 BP 188/96 H 04/06/23 16:05 Pulse Ox 96 04/06/23 13:32 Time Spent Time spent with Patient: 40-54 minutes Time was spent: preparing to see the patient(eg.review tests), obtaining and/or reviewing separately otained hiistory, ordering medications,tests, procedures, indepentently interpreting results, counseling the patient and care coordination
[2023-04-06 17:52] LABS: PTT Activated 26.3 sec (23.6-32.8)
[2023-04-06] MEDS: Isosorbide Mononitrate 60 MG TABCR PO (18:08)
[2023-04-06] MEDS: LORazepam 0.5 MG TAB PO (18:09)
[2023-04-06] MEDS: Metoprolol 12.5 MG TAB PO (18:09)
--- NOTE | 2023-04-06 18:17 | DSE_ITS ---
Date of service: 04/06/23 Time of Service: 18:19 DS: Diagnosis Discharge Diagnosis (1) Elevated troponin: Status: Acute (2) Diabetes mellitus: Status: Chronic (3) Atherosclerosis of [place] coronary artery: Status: Chronic (4) Atrial fibrillation with rapid ventricular response: Status: Acute (5) Hypomagnesemia: Status: Acute (6) Atherosclerotic renal artery stenosis: Status: Chronic Discharge Plan Disposition Patient Disposition: Transfer-Acute Inpatient Care Specific Acute Inpt Facility: [facility] Condition: Serious Discharge Details Reason For Visit: atrial fibrillation with RVR, Demand ischemia Admit Date/Time: 04/06/23 15:16 Admit Provider: Cm Londono Attending Provider: Cm Londono Primary Care Provider: Wesley Negrete Hospital Course Hospital Course: This is an 82 yo male with a PMH of CAD with remote CABG and PCI, carotid stenosis with stent, renal artery stenosis with stent, chronic afib on Eliquis, HTN, DM2. He presented to the ED with c/o CP; earlier in the day after arguing with his . The pain had been intermittent, across the precordium. No diaphoresis, N/V, shortness of breath. Pain in the ED was 3/10. EKG showed afib with ventricular rate of 110. Nonspecific ST depressions noted on prior EKG. He was administered 10mg IV dilitiazem and HR improved into the low 90's and his CP improved but did not completely subside. Troponin elevated at 179. CBC normal. Na, K normal. Mg 1.6. BUN 39. Creatinine 1.6. Admitted for further evaluation and treatment; r/o CT vs demand ischemia. His second troponin increased to 919. [place] [facility] [place] recommendation was heparin drip and transfer for cardiac cath. Also recommended was po metoprolol 12.5mg Q6H for HR control. Home Meds and New Rx's Prescriptions: No Action Eliquis 5 mg tablet 5 mg PO BID Qty: 180 3RF atorvastatin 40 mg tablet 40 mg PO DAILY Qty: 90 4RF lisinopril 20 mg tablet 40 mg PO DAILY Qty: 180 3RF metoprolol succinate 100 mg tablet extended release 24 hr 100 mg PO DAILY Qty: 90 3RF sertraline 50 mg tablet 50 mg PO DAILY Qty: 30 2RF azelastine 205.5 mcg (0.15 %) spray,non-aerosol 2 spray NEGRITA BID PRN (Reason: nasal congestion) Qty: 30 2RF Rx Instructions: administer into each nostril metformin 850 mg tablet 850 mg PO BID Qty: 180 3RF Patient Comments: pt. states he only takes it once a day hydrochlorothiazide 12.5 mg capsule 25 mg PO DAILY Qty: 90 3RF Rx Instructions: dose increase 03/27/23 (DME) blood-glucose meter [OneTouch UltraMini] 1 EACH kit 1 ea Miscellaneous ONCE Rx Instructions: DX:250.0 (DME) lancets 28 gauge misc 1 ea Miscellaneous DAILY Qty: 100 4RF Rx Instructions: ONE TOUCH 1 daily (DME) OneTouch Ultra Blue Test Strip Strip See Rx Instructions .ROUTE .MEDSUPPLY Qty: 100 3RF Rx Instructions: test once/day Discharge Instructions Activity:: Bedrest Equipment/Supplies:: No Equipment Needed Diet:: NPO DS: Summary Time Spent with Patient providing and/or coordinating discharge services: Greater than 30 minutes Status at Discharge Functional status at discharge: independent ambulation Overall status at discharge: patient is not back to baseline Mental Status: mental status grossly normal Speech and Movement: speech and movement normal Mood: anxious mood Affect: anxious affect Exam Narrative Exam Narrative: General: Well-developed, no acute distress HEENT: EYES: PERRL, no conjunctival injection. MMM CVS: Irregularly irregular, tachycardic 1-2+ edema bilaterally RESP: +/- fine basilar crackles, otherwise clear and nonlabored breathing. GI: Soft, Nontender, Nondistended, No organomegaly Skin: Warm, Dry. No rashes or lesions. NEURO: No focal neurologic deficits. PSYCH: Appropriate mood and affect Psych Mental Status: mental status grossly normal Speech and Movement: speech and movement normal Mood: anxious mood Affect: anxious affect DS: Data Vitals/I&O Vitals and I&O: Vital Signs Temperature 36.3 C L 04/06/23 17:22 Pulse 85 04/06/23 17:22 Pulse Rhythm Irregular 04/06/23 17:22 Pulse 95 H 04/06/23 16:05 Respiratory Rate 14 04/06/23 17:22 Respiratory Effort Normal 04/06/23 17:22 Respiratory Depth Normal 04/06/23 17:22 Respiratory Pattern Normal 04/06/23 17:22 Blood Pressure 155/91 H 04/06/23 17:22 Blood Pressure Mean 127 04/06/23 16:05 Blood Pressure Position Supine 04/06/23 13:32 Pulse Oximetry 99 04/06/23 17:22 Oxygen Delivery Method Room Air 04/06/23 17:22 Oxygen Flow Rate 0 04/06/23 17:22 Pain Level 5 04/06/23 14:08 Intake & Output 04/05/23 04/06/23 04/06/23 23:59 11:59 23:59 Intake Total 250 / 250 Output Total 500 / 500 Balance -250 / -250 Weight 81.647 kg Intake: IV Oral 240 / 240 Output: Urine 500 / 500 Other: Urine Color Yellow Urine Appearance Clear Urine Odor None Comment x2 Data Completed and Pending Labs on day of discharge: Labs from last 24 hours 04/06/23 04/06/23 04/06/23 16:36 15:02 13:55 WBC 7.90 RBC 4.63 Hgb 15.5 Hct 43.7 MCV 94 MCH 33.5 H MCHC 35.5 RDW 12.2 Plt Count 201 MPV 10.5 Immature Gran % 1.3 Neutrophils % 76.5 Lymphocytes % 13.0 Monocytes % 7.8 Eosinophils % 0.8 Basophils % 0.6 Nucleated RBC % 0.0 Absolute Neutrophils 6.04 Absolute Lymphocytes 1.03 L Absolute Monocytes 0.62 Absolute Eosinophils 0.06 Absolute Basophils 0.05 APTT 26.3 Sodium 138 Potassium 4.3 Chloride 103 Carbon Dioxide 21.0 Anion Gap 14.0 H BUN 39 H Creatinine 1.6 H Est GFR (CKD-EPI 2020) 42.75 Glucose 161 H Calcium 10.2 H Magnesium 1.6 L Total Bilirubin 0.6 AST 23 ALT 28 Alkaline Phosphatase 55 Troponin I 919 H* 179 H* NT-Pro-B Natriuret Pep 882 H Total Protein 7.9 Albumin 4.4 COVID-19 Source Nasal/Nares SARS-CoV-2 (PCR) Negative PFSH All Active Problems Elevated troponin (Acute) Allergic rhinitis (Acute) Diabetes mellitus (Chronic 12/09/12) Atherosclerosis of [place] coronary artery (Chronic) coronary stent x 5 05/14 Echo 07/16-LVEF 68% Left shoulder pain (Acute) Depression (Chronic) Bilateral lower extremity edema (Acute) Bilateral arm pain (Acute) Financial difficulties (Acute) Dysfunction of right rotator cuff (Acute) Right shoulder pain (Acute) Peripheral neuropathy (Acute) Cervical radiculopathy (Acute) Mood disorder (Acute) Discharge planning issues (Acute) DVT prophylaxis (Acute) Hyperlipidemia (Chronic) NSTEMI (non-ST elevated myocardial infarction) (Acute) Atrial fibrillation with rapid ventricular response (Acute) Hypomagnesemia (Acute) History of congestive heart failure (Acute) Carpal tunnel syndrome of left wrist (Acute) Trigger finger, left middle finger (Acute) Dupuytren's contracture of left hand (Acute) small finger Cataract, left (Acute) Cataracts, bilateral (Acute) Bilateral carpal tunnel syndrome (Acute) Atherosclerotic renal artery stenosis (Chronic 05/09/04) stent placed Hydrocele (Chronic) left Patellofemoral syndrome, 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) Retinopathy (Chronic 10/24/16) 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;10/18/16 Shoulder pain (Chronic) bursitis right Reactive depression (situational) (Acute) BPH w urinary obs/LUTS (Chronic) Carpal tunnel syndrome of right wrist (Acute) Angina pectoris (Chronic) Carotid artery stenosis (Chronic) right; stent placed 04/17 Essential hypertension (Chronic 06/09/13) Status post three vessel coronary artery bypass (Chronic) Surgical History History of intravascular stent placement Status post inguinal hernia repair Status post tonsillectomy TRIPLE BYPASS 1 CAROTID STENT ON RIGHT SIDE 5 STENTS TOTAL Stent placement 2004; 5 stents 1 stent to left renal artery Repair of inguinal hernia right Family History Mother , AGE 80 Diabetes Heart disease Father , AGE 80 Heart disease Sister No problems noted. Brother No problems noted. Sister No problems noted. Brother Diabetes Heart disease Son , AGE 50 Alcohol abuse Depression Hypertension Daughter No problems noted. Daughter No problems noted. Social History Smoking/Tobacco Use Status: Former Tobacco Use Second Hand Exposure: No Smoking risk assessment performed?: Yes Drug use: Never Substance use type: does not use Details: alcohol: t-1, couple beers Caregiver/Support person: No Household members: spouse Housing: house Do you need help understanding health information?: Never Pets and animals: Yes Pets and animals: cat(s) Sexually active: No Do you think of yourself as: straight/heterosexual Current gender identity: male and decline to answer What is your relationship status?: How often do you talk on the phone with friends or family?: decline to answer How often do you get together with friends or relatives?: decline to answer How often do you attend rastafari or baptism services?: decline to answer Do you belong to any clubs or organized social groups?: no Panel score (0-1 are the most socially isolated patients): 1 What type of physical activity do you participate in: none Frequency: does not exercise Rani/Anabaptism: Church Special rani needs: No Seatbelt use: always Drive intox or ride w/intox 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
[2023-04-06] MEDS: Heparin in 0.45% NaCl 25,000 UNIT/250 ML BAG 10 UNIT IV (18:49)
== END 2023-04-06 20:23 | disposition short-term general hospital (02) | DRG 303 ==
LOC: ER 15:41 → MS 16:22
PROVIDERS: Admitting Provider Family Medicine; Emergency Provider Emergency Medicine; PCP Family Medicine; Visit Provider Family Medicine
DX: I25.119 Atherosclerotic heart disease of native coronary artery with unspecified angina pectoris (principal); I48.20 Chronic atrial fibrillation, unspecified; R74.8 Abnormal levels of other serum enzymes; E83.42 Hypomagnesemia; I70.1 Atherosclerosis of renal artery; I10 Essential (primary) hypertension; J30.9 Allergic rhinitis, unspecified; F32.A Depression, unspecified; R60.0 Localized edema; E11.42 Type 2 diabetes mellitus with diabetic polyneuropathy; M54.12 Radiculopathy, cervical region; E78.5 Hyperlipidemia, unspecified; N40.1 Benign prostatic hyperplasia with lower urinary tract symptoms; I65.21 Occlusion and stenosis of right carotid artery; Z87.891 Personal history of nicotine dependence; Z95.1 Presence of aortocoronary bypass graft; Z95.5 Presence of coronary angioplasty implant and graft; Z79.84 Long term (current) use of oral hypoglycemic drugs; I25.2 Old myocardial infarction; Z79.01 Long term (current) use of anticoagulants
CPT/HCPCS: 00123; 80053; 87635; 93005; 96374; 96375; 99291; 71045; 83735; 83880; 84484; 85025; 85730; 93010; 99223; J1940; J3475; J3490

== ENCOUNTER → 2023-06-21 10:46 | Outpatient (CLI) | payer MEDICARE, SELFPAY ==
--- NOTE | 2023-06-21 10:00 | DI.RAD_ITS ---
Exam(s) XR KNEE RT 3V AP,LAT,HERMAN EXAM: XR KNEE RT 3V AP,LAT,HERMAN CLINICAL HISTORY: evaluate pathology, RT KNEE PAIN, M25.561. TECHNIQUE: 2D digital imaging was performed of the right knee. Three views obtained. AP, lateral an d PA tunnel views were obtained. COMPARISON: No exams were available for comparison FINDINGS: BONES: No acute fracture is present. No bony destructive lesion is seen. There is an enthesophyte at the superior patella. JOINTS: The knee is normally aligned. There is mild narrowing of the medial femoral tibial joint. Ch ondrocalcinosis is seen in both joint spaces which can be seen with CPPD arthropathy. Small osteophy te is seen in the medial femoral tibial joint. No significant joint effusion. SOFT TISSUE: Extensive vascular calcification is present. Surgical clips are seen in the soft tissue s of the medial leg. IMPRESSION: 1. Chondrocalcinosis which can be seen with CPPD arthropathy. 2. Extensive vascular calcification. DATA REPOSITORY: RADIATION DOSE DELIVERED:
== END ==
PROVIDERS: PCP Family Medicine; Visit Provider Nurse Practitioner Family
DX: M11.261 Other chondrocalcinosis, right knee (principal)
CPT/HCPCS: 36415; 73562; 80048

== ENCOUNTER 2023-06-21 13:47 | Outpatient (CLI) | payer MEDICARE, SELFPAY ==
[2023-06-21 14:11] LABS: Anion Gap 9.7 mmol/L (3-11); BUN 24 mg/dL (7-18); CO2 25.3 mmol/L (21.0-32.0); CREATININE 1.3 mg/dL (0.70-1.30); Calcium 9.5 mg/dL (8.5-10.1); Chloride 103 mmol/L (98-107); Estimated GFR 54.85 (mL/min/1.73m2); Glucose 160 mg/dL (74-106); Potassium 4.7 mmol/L (3.5-5.1); Sodium 138 mmol/L (136-145)
== END 2023-06-21 13:48 | disposition home or self-care (01) ==
LOC: LBO 13:47
PROVIDERS: PCP Family Medicine; Visit Provider Internal Medicine Cardiovascular Disease
DX: I10 Essential (primary) hypertension (principal)
CPT/HCPCS: 36415; 80048

== ENCOUNTER → 2023-11-22 00:26 | Outpatient (CLI) | payer MEDICARE, SELFPAY ==
--- NOTE | 2023-11-22 07:30 | DI.US_ITS ---
APPROVED REPORT EXAM: Comprehensive 2D, Doppler, and color-flow Echocardiogram Patient Location: Out-Patient Benefit Director: Ino Hollingsworth RDCS (AE) Indications: Reassess valves, edema, endocarditis Conclusion Left ventricle is top normal in size. EF is 50 to 55%. There is mild global hypokinesis Dilated right ventricle with preserved systolic function Both atria are moderately enlarged Aortic valve is trileaflet and sclerotic without stenosis or regurgitation Normal mitral valve with mild regurgitation Normal tricuspid valve with moderate regurgitation. Estimated right ventricular systolic pressure is 47 mmHg Ascending aorta measures 3.77 cm Wall motion Left Ventricle The left ventricle is borderline normal in size. Left ventricular systolic function is borderline. Th ere is normal left ventricular wall thickness. There is mild global hypokinesis of the left ventricle . There is no ventricular septal defect visualized. LVEF is 50-55%. Right Ventricle Right ventricle is moderately dilated. The right ventricular systolic function is normal. Atria Left atrium is moderately dilated. Right atrium is moderately dilated. The interatrial septum is inta ct with no evidence for an atrial septal defect. Aortic Valve The Aortic valve is sclerotic. Aortic valve is trileaflet. There is no aortic valvular stenosis. No a ortic regurgitation is present. Mitral Valve The mitral valve is normal in structure. No evidence of mitral valve stenosis. Mild mitral regurgitat ion. Tricuspid Valve The tricuspid valve is normal in structure. There is no tricuspid valve stenosis. Moderate tricuspid regurgitation. The RVSP is 46.8 mmHg. Pulmonic Valve The pulmonary valve is normal in structure. There is no pulmonic valvular stenosis. Moderate pulmonic regurgitation. Great Vessels The aortic root is normal in size. The ascending aorta is mildly dilated. Aortic arch is not well vis ualized. IVC is normal in size and collapses >50% with inspiration. Pericardium There is no pericardial effusion. 2D Dimensions IVSD d PLAX 0.81 cm M: 0.6-1.2 Ao Root d 3.12 cm M: 3.1 - 3.7 LVPW d PLAX 0.76 cm M: 0.6 - 1.2 Ao Asc Diam d 3.77 cm M: 2.6 - 3.4 LVID d PLAX 5.75 cm M: 4.2 - 5.8 IVC Diam exp d SLAX 1.6 cm LVDs 4.16 cm M: 2.5 - 4.0 LV EF Teichholz 53.0 % FS 27.70 % LV EDV (Teich) 163.3 mL LV ESV (Teich) 76.7 mL Stroke Vol Index (Teich) 45.83 M-Mode TAPSE 1.36 cm (M/F) >1.7 Auto EF LV EDV A4C 92.0 mL LV EDV A2C 110.8 mL LV EDV BP 100.6 mL LV ESV A4C 45.9 mL LV ESV A2C 52.6 mL LV ESV BP 48.3 mL LVEF(%) A4C 50.2 % LVEF(%) A2C 52.5 % LVEF(%) BP 52.0 % LV SV A4C 46.1 ml LV SV A2C 58.2 ml LV SV BP 52.3 ml LV CO A4C 3.7 L/min LV CO A2C 5.2 L/min LV CO BP 4.4 L/min HR A4C 79.30 BPM HR A2C 88.67 BPM LV EDV Index (BP) LA Volume LA Length A4C 5.8 cm LA Length A2C 6.2 cm LA Area A4C s 18.84 cm2 LA Area A2C s 24.28 cm2 LA Vol A4C A-L 52.23 mL LA Vol A2C A-L 80.20 mL LA Vol Biplane A-L 67.3 mL LA Vol/BSA A4C A-L LA Vol/BSA A2C A-L LA Vol/BSA BP A-L 35.6 mL/m2 LA Vol A4C MOD 49.2 mL LA Vol A2C MOD 77.7 mL LA Vol BP MOD 63.9 mL RA Volume RA Area A4C 27.7 cm2 RA ESV A4C (A-L) 112.2mL RA Vol/BSA A4C A-L RA Length A4C 5.8 cm RA ESV A4C (MOD) 103.3mL LV Diastology MV E' medial 0.091 (>0.07 m/s) MV E Vmax 0.98 (0.4-1.3 m/s) MV E' lateral 0.118 (>0.1 m/s) Aortic Valve AoV Vmax 1.71 m/s LVOT Vmax 0.56 m/s AoV Peak Grad 11.7 mmHg LVOT Peak Grad 1.3 mmHg AoV Area (Vmax) 0.98 cm2 LVOT VTI 0.110 m AoV VTI 0.312 m LVOT Mean Grad 0.7 mmHg AoV Mean Basim. 1.13 m/s LVOT SV 32.78 mL AoV Mean Grad 6.0 mmHg LVOT Diam s 1.90 cm AoV Area (VTI) 1.05 cm2 Velocity Ratio 0.33 Pulmonary Valve PV Vmax 1.04 (0.5-1.5 m/s) RVOT Vmax 0.64 m/s PV Peak Grad 4.3 mmHg RVOT Peak Gr. 1.6 mmHg PV Mean Basim 0.70 m/s RVOT VTI 0.125 m PV Mean Grad 2.3 mmHg RVOT Mean Gr. 0.9 mmHg Tricuspid Valve RA Pressure 3.00 mmHg TR Vmax 3.31 m/s TR Peak Grad 43.8 mmHg RVSP (TR) 46.8 mmHg
== END ==
PROVIDERS: PCP Family Medicine; Visit Provider Family Medicine
DX: I38 Endocarditis, valve unspecified (principal); I08.1 Rheumatic disorders of both mitral and tricuspid valves; R60.9 Edema, unspecified
CPT/HCPCS: 93306

== ENCOUNTER 2024-01-05 20:09 | Emergency (ER) | payer MEDICARE, SELFPAY ==
[2024-01-05] VITALS (53 sets, daily range): BP systolic 32–196; BP diastolic 15–122; PULSE 0–146; RESP 0–79; TEMP 1.6–36.7; O2SAT 95–96
--- NOTE | 2024-01-05 20:00 | RT.EKG_ITS ---
APPROVED REPORT Exam: Resting ECG Reason for Exam: bradycardia Patient Location: E HR:144 bpm ECG Measurements Heart Rate 144 AXIS OR [id number] P [id number] QRSd 106 QRS 37 QT 316 T 205 QTc 486 Conclusion Atrial fibrillation [address] depressions
--- NOTE | 2024-01-05 20:15 | DI.RAD_ITS ---
Exam(s) XR PORTABLE CHEST AP POST LINE EXAM: XR PORTABLE CHEST AP POST LINE CLINICAL HISTORY: cardiac arrest TECHNIQUE: 2D digital imaging was performed. COMPARISON: CR,XR XR PORTABLE CHEST AP from 04/06/2023 FINDINGS: Exam limited by under penetration and multiple overlying leads. A nasogastric tube projects beneath the diaphragm. Endotracheal tube is positioned 4 cm above the ca cara. LUNGS: Poorly inflated. Diffuse increased densities which could represent CHF versus diffuse pneumon itis. No pleural abnormality seen. HEART: Enlarged. Prior CABG. AORTA: Normal diameter. BONES: Unremarkable for age. Soft tissues: Unremarkable. IMPRESSION: No replacement of endotracheal and nasogastric tubes. Cardiomegaly and CHF. DATA REPOSITORY: RADIATION DOSE DELIVERED:
[2024-01-05] MEDS: Sodium Bicarbonate 50 MEQ/50 ML SYR IVP ×2 (20:16→21:15)
[2024-01-05] MEDS: fentaNYL 250 MCG/5 ML VIAL ×2 (20:25→20:55)
[2024-01-05] MEDS: Lactated Ringers 1,000 ML 1000 ML IV ×2 (20:35→21:35)
[2024-01-05] MEDS: PROPOFOL 1,000 MG/100 ML BTL 2.268 MG IVPB (20:35)
[2024-01-05 20:38] LABS: Abs Immature Grans 0.26 10^3/uL (0.0-0.06); Absolute Basophil Count 0.03 10^3/uL (0.0-0.2); Basophils % 0.2 %; HCT 39.2 % (40.0-50.0); HGB 13.1 g/dL (13.5-17.5); Immature Grans % 1.6 %; Lymphocytes % 2.5 %; MCH 33.9 pg (27.0-33.0); MCHC 33.4 % (32.0-36.0); MCV 102 fL (80-95); MPV 9.7 fL (8.0-11.0); Monocytes % 5.4 %; Neutrophils % 90.3 %; Nucleated RBC 0.1 % (0.0-0.3); Platelet Count 217 10^3/uL (130-400); RBC 3.86 10^6/uL (4.36-5.78); RDW 12.2 % (11.8-14.1); RDW-SD 45.4 fL; WBC 15.84 10^3/uL (4.4-10.8)
[2024-01-05 20:39] LABS: Absolute Monocyte Count 0.86 10^3/uL (0.1-0.8)
[2024-01-05 20:48] LABS: Prothrombin Time 13.2 sec (9.1-11.1)
[2024-01-05] MEDS: Norepinephrine in D5W 8 MG/250 ML BAG 9.4 MG IV (20:50)
[2024-01-05 20:53] LABS: INR 1.3 (0.9-1.1)
[2024-01-05 20:56] LABS: ALT 37 U/L (16-63); AST 104 U/L (15-37); Albumin 3.1 g/dL (3.4-5.0); Alkaline Phosphatase 56 U/L (46-116); Anion Gap 22.9 mmol/L (3-11); BUN 37 mg/dL (7-18); Bilirubin, Total 0.75 mg/dL (0.2-1.0); CO2 13.1 mmol/L (21.0-32.0); CREATININE 1.9 mg/dL (0.70-1.30); Calcium 8.2 mg/dL (8.5-10.1); Chloride 98 mmol/L (98-107); Estimated GFR 34.57 (mL/min/1.73m2); Glucose 296 mg/dL (74-106); Magnesium 1.4 mg/dL (1.8-2.4); Potassium 5.3 mmol/L (3.5-5.1); Sodium 134 mmol/L (136-145); Total Protein 6.1 g/dL (6.4-8.2)
[2024-01-05 20:58] LABS: Creatine Kinase 876 U/L (39-308)
[2024-01-05 21:04] LABS: Troponin I 35739 ng/L (< or =60)
[2024-01-05 21:05] LABS: NT-proBNP 6310 pg/mL (<300)
[2024-01-05 21:11] LABS: ETHANOL BLOOD < 3.0 mg/dL (<10)
--- NOTE | 2024-01-05 21:15 | RT.EKG_ITS ---
APPROVED REPORT Exam: Resting ECG Reason for Exam: cardiac arrest Patient Location: E HR:132 bpm ECG Measurements Heart Rate 132 AXIS VT [id number] P [id number] QRSd 97 QRS -14 QT 339 T 185 QTc 504 Conclusion atrial fib [address] depression
[2024-01-05] MEDS: MAGNESIUM SULFATE 4 GM/100 ML BAG IVINF (21:16)
[2024-01-05] MEDS: Heparin in 0.45% NaCl 25,000 UNIT/250 ML BAG 9.5 UNIT IV (21:42)
[2024-01-05] MEDS: Aspirin 300 MG SUPP PR (21:45)
[2024-01-05] MEDS: Clopidogrel 300 MG TAB 600 MG PO (21:46)
--- NOTE | 2024-01-05 21:57 | DI.VRAD_ITS ---
PROCEDURE INFORMATION: Exam: XR Chest Exam date and time: 01/05/2024 8:33 PM Age: 83 years old Clinical indication: Other: Cardiac arrest TECHNIQUE: Imaging protocol: Radiologic exam of the chest. Views: 1 view. COMPARISON: CR XR PORTABLE CHEST AP 04/06/2023 2:53 PM FINDINGS: Tubes, catheters and devices: An endotracheal tube is in position. Tip is 4.2 cm above the darrick. An NG tube enters the stomach appropriately. Lungs: There are increased interstitial lung markings bilaterally suggesting fluid overload or interstitial edema. Pleural spaces: No gross pleural effusion. Heart/Mediastinum: Moderate to severe cardiac enlargement. Previous open-heart surgery. Bones/joints: Unremarkable. IMPRESSION: 1. Interstitial edema/CHF. 2. No pleural effusions. 3. Endotracheal tube and NG tube are well positioned. 4. Previous open-heart surgical bypass. Cardiomegaly. Dictated and Authenticated by: Miguel Angel Chowdhury MD. Ordering:GUSTAVO Hinds MD
[2024-01-05 22:05] LABS: BE (Venous) -19 mmol/L (-2-3); HCO3 (Venous) 12 mmol/L (23-28); O2 Sat (Venous) 38 %; TCO2 (Venous) 13 mmol/L (24-29); pCO2 (Venous) 50 mmHg (41-51); pO2 (Venous) 32 mmHg
[2024-01-05 22:41] LABS: *AMPHETAMINES SCREEN URINE Negative (Negative); *BARBITURATES SCREEN URINE Negative (Negative); *BENZODIAZEPINES SCREEN URINE Negative (Negative); Cannabinoids THC Negative (Negative); Cocaine Screen,Urine Negative (Negative); METHADONE URINE SCREEN Negative (Negative); OPIATES URINE SCREEN Negative (Negative)
[2024-01-05 22:46] LABS: Tricyclic Antidepressants Negative (Negative)
--- NOTE | 2024-01-05 23:34 | ED.GENADUL_ITS ---
Discharge Plan Disposition Patient Disposition: Discharge Details Chief Complaint: Chest Pain Clinical Impression: Cardiac arrest, Atrial fibrillation with rapid ventricular response, NSTEMI (non-ST elevated myocardial infarction), Elevated troponin Primary Care Provider: Wesley Negrete ED Provider: Fred Riddle Home Meds and New Rx's Prescriptions: No Action atorvastatin 40 mg tablet 40 mg PO DAILY Qty: 90 4RF metoprolol succinate 100 mg tablet extended release 24 hr 100 mg PO DAILY Qty: 90 3RF carbidopa-levodopa [Sinemet] 10-100 mg tablet 1 tab PO QHS Qty: 30 2RF hydrochlorothiazide 12.5 mg tablet 25 mg PO DAILY Qty: 180 3RF Rx Instructions: dose increase 12/26/23 sertraline 50 mg tablet 50 mg PO DAILY Qty: 30 5RF azelastine 205.5 mcg (0.15 %) spray,non-aerosol 2 spray NEGRITA BID PRN (Reason: nasal congestion) Qty: 30 2RF Rx Instructions: administer into each nostril metformin 850 mg tablet 850 mg PO BID Qty: 180 3RF Patient Comments: pt. states he only takes it once a day ezetimibe 10 mg tablet 10 mg PO DAILY Qty: 90 3RF (DME) blood-glucose meter [OneTouch UltraMini] 1 EACH kit 1 ea Miscellaneous ONCE Rx Instructions: DX:250.0 (DME) lancets 28 gauge misc 1 ea Miscellaneous DAILY Qty: 100 4RF Rx Instructions: ONE TOUCH 1 daily lisinopril 10 mg tablet 10 mg PO DAILY Rx Instructions: 04/09/23 Per [facility] -[facility] (DME) OneTouch Ultra Test Strip See Rx Instructions .Route Qty: 100 3RF Rx Instructions: test once/day Eliquis 5 mg tablet 5 mg PO BID Qty: 180 3RF clopidogrel 75 mg tablet 75 mg PO DAILY Qty: 90 1RF Rx Instructions: 04/09/23 Per [facility]. -[facility] HPI General Date/Time Provider Initiated Documentation: 01/05/24 20:11 . Limitations to Documentation: altered mental status and physical limitation . Information obtained by: EMS . HPI Narrative: 83-year-old gentleman with past medical history including diabetes, heart disease, CHF, A-fib, hypertension, CABG presents for evaluation by EMS. EMS reports that they were notified by neighbors that the patient has been on the floor since yesterday. They report that the patient was noted to be A-fib with RVR and they gave the patient 5 mg of Lopressor and route. Shortly afterward the medication and just as the patient was arriving to the emergency department, they noted that he became unresponsive and there was concern for loss of pulse. Related Data Home Medications ?Medication ?Instructions ?Recorded ?Confirmed blood-glucose meter (OneTouch 12/01/12 12/26/23 UltraMini kit) lancets 28 gauge #100 ea 07/02/19 12/26/23 atorvastatin 40 mg tablet 40 mg PO DAILY #90 tab-caps 12/19/22 12/26/23 metoprolol succinate 100 mg 100 mg PO DAILY #90 tab-caps 12/19/22 12/26/23 tablet,extended release 24 hr azelastine 205.5 mcg (0.15 %) 2 spray intranasal BID PRN nasal 03/27/23 12/26/23 nasal spray congestion #30 mL metformin 850 mg tablet 850 mg PO BID #180 tab-caps 03/27/23 12/26/23 lisinopril 10 mg tablet 10 mg PO DAILY 04/12/23 12/26/23 blood sugar diagnostic (OneTouch #100 ea 04/23/23 12/26/23 Ultra Test strips) ezetimibe 10 mg tablet 10 mg PO DAILY #90 tabs 06/27/23 12/26/23 apixaban 5 mg tablet (Eliquis) 5 mg PO BID #180 tabs 08/12/23 12/26/23 clopidogrel 75 mg tablet 75 mg PO DAILY #90 tabs 10/12/23 12/26/23 sertraline 50 mg tablet 50 mg PO DAILY #30 tabs 10/30/23 12/26/23 carbidopa 10 mg-levodopa 100 mg 1 tab PO QHS #30 tabs 12/26/23 12/26/23 tablet (Sinemet) hydrochlorothiazide 12.5 mg tablet 25 mg (2 x 12.5 mg) PO DAILY #180 12/26/23 12/26/23 tabs Previous Rx's ?Medication ?Instructions ?Recorded lancets 28 gauge #100 ea 07/02/19 atorvastatin 40 mg tablet 40 mg PO DAILY #90 tab-caps 12/19/22 metoprolol succinate 100 mg 100 mg PO DAILY #90 tab-caps 12/19/22 tablet,extended release 24 hr azelastine 205.5 mcg (0.15 %) 2 spray intranasal BID PRN nasal 03/27/23 nasal spray congestion #30 mL metformin 850 mg tablet 850 mg PO BID #180 tab-caps 03/27/23 blood sugar diagnostic (OneTouch #100 ea 04/23/23 Ultra Test strips) ezetimibe 10 mg tablet 10 mg PO DAILY #90 tabs 06/27/23 apixaban 5 mg tablet (Eliquis) 5 mg PO BID #180 tabs 08/12/23 clopidogrel 75 mg tablet 75 mg PO DAILY #90 tabs 10/12/23 sertraline 50 mg tablet 50 mg PO DAILY #30 tabs 10/30/23 carbidopa 10 mg-levodopa 100 mg 1 tab PO QHS #30 tabs 12/26/23 tablet (Sinemet) hydrochlorothiazide 12.5 mg tablet 25 mg (2 x 12.5 mg) PO DAILY #180 12/26/23 tabs Allergies Allergy/AdvReac Type Severity Reaction Status Date / Time amlodipine AdvReac Intermediate edema Verified 01/06/24 00:06 General Stated Complaint: Chest Pain HIEN: 1 Exam Narrative Exam Narrative: Review of Systems: All systems reviewed & are unremarkable except as noted in HPI and below Ill-appearing, ford discoloration NCAT Pupils midrange minimally reactive No pulse Agonal respiratory effort Nondistended abdomen Extremities w/o deformity, no cyanosis, no edema No rashes or lesions. Course Vital Signs Vital signs: Vital Signs Respiratory Rate 01/05/24 20:26 Temperature 2.1 C L 01/05/24 22:51 Pulse 80 01/05/24 22:51 Pulse 78 01/05/24 22:51 Respiratory Rate 18 01/05/24 22:51 Blood Pressure 32/15 L 01/05/24 22:51 Blood Pressure Mean 20 01/05/24 22:51 Pulse Oximetry 96 01/05/24 20:40 Respiratory End-tidal CO2 21 01/05/24 21:37 Fraction of Inspired Oxygen (FIO2) 30 01/05/24 20:40 Lab/Test Results Lab/Test Results: Laboratory Tests Range/Units 01/05/24 01/05/24 20:15 20:30 WBC (4.4-10.8) 10^3/uL 15.84 H RBC (4.36-5.78) 10^6/uL 3.86 L Hgb (13.5-17.5) g/dL 13.1 L Hct (40.0-50.0) % 39.2 L MCV (80-95) fL 102 H MCH (27.0-33.0) pg 33.9 H MCHC (32.0-36.0) % 33.4 RDW (11.8-14.1) % 12.2 Plt Count (130-400) 10^3/uL 217 MPV (8.0-11.0) fL 9.7 Immature Gran % % 1.6 Neutrophils % % 90.3 Lymphocytes % % 2.5 Monocytes % % 5.4 Eosinophils % % 0.0 Basophils % % 0.2 Nucleated RBC % (0.0-0.3) % 0.1 Absolute Neutrophils (1.2-6.7) 10^3/uL 14.30 H Absolute Lymphocytes (1.2-3.4) 10^3/uL 0.40 L Absolute Monocytes (0.1-0.8) 10^3/uL 0.86 H Absolute Eosinophils (0.0-0.7) 10^3/uL 0.00 Absolute Basophils (0.0-0.2) 10^3/uL 0.03 PT (9.1-11.1) sec 13.2 H INR (0.9-1.1) 1.3 H APTT (23.6-32.8) sec 26.0 VBG pH (7.31-7.41) 7.00 L* VBG pCO2 (41-51) mmHg 50 VBG pO2 mmHg 32 VBG HCO3 (23-28) mmol/L 12 L VBG Total CO2 (24-29) mmol/L 13 L VBG O2 Saturation % 38 VBG Base Excess (-2-3) mmol/L -19 L Sodium (136-145) mmol/L 134 L Potassium (3.5-5.1) mmol/L 5.3 H Chloride (98-107) mmol/L 98 Carbon Dioxide (21.0-32.0) mmol/L 13.1 L Anion Gap (3-11) mmol/L 22.9 H BUN (7-18) mg/dL 37 H Creatinine (0.70-1.30) mg/dL 1.9 H Est GFR (CKD-EPI 2020) (mL/min/1.73m2) 34.57 Glucose (74-106) mg/dL 296 H Calcium (8.5-10.1) mg/dL 8.2 L Magnesium (1.8-2.4) mg/dL 1.4 L Total Bilirubin (0.2-1.0) mg/dL 0.75 AST (15-37) U/L 104 H ALT (16-63) U/L 37 Alkaline Phosphatase (46-116) U/L 56 Creatine Kinase (39-308) U/L 876 H Troponin I (< or =60) ng/L 57197 H* NT-Pro-B Natriuret Pep (<300) pg/mL 6310 H Total Protein (6.4-8.2) g/dL 6.1 L Albumin (3.4-5.0) g/dL 3.1 L Urine Opiates Screen (Negative) Negative Urine Methadone Screen (Negative) Negative Ur Barbiturates Screen (Negative) Negative Ur Tricyclics Screen (Negative) Negative Ur Amphetamines Screen (Negative) Negative U Benzodiazepines Scrn (Negative) Negative Urine Cocaine Screen (Negative) Negative Ur THC Screen (Negative) Negative Ethyl Alcohol (<10) mg/dL < 3.0 Procedures Intubation Laryngoscope: fiberoptic video scope Assist Device Used: fiberoptic device ET Tube Size: 7.5 ET Tube Uncuffed: No Tube Secured Depth (cm): 24 Tube Secured Location: lips Tube Placement Confirmation: visualized tube passing through cords, equal breath sounds bilaterally and confirmation by capnometry Patient Tolerated Procedure: no complications Medical Decision Making Emergent evaluation of cardiac arrest. The patient was found down at home, the circumstances of that are unknown at this time. It is also unknown how long she might have been on the ground. EMS is not able to provide any additional his tory, on the patient's arrival he was very ill-appearing and did not have a pulse, ACLS protocols were initiated including CPR and airway management. The patient received several rounds of medication and airway was secured. I return of spontaneous circulation was obtained. At that time an EKG was obtained. It did reveal atrial fibrillation with a an elevated heart rate. There are significant ST segment depressions concerning for likely subacute [place]. I have reviewed prior EKG and noted that there are not these significant depressions on prior EKG leading me to suspect that this is likely new. Am also concerned that the reason that he was down was likely a cardiac event. After initial ROSC, patient was started on fentanyl for sedation. A chest x-ray was obtained and the patient has evidence of cardiomegaly with pulmonary edema. His troponin resulted significantly elevated over 35,000. Given this finding in addition to his EKG changes, I am highly suspicious that this is cardiac etiology and I will start heparin, give aspirin and load with Plavix. I have discussed with cardiology at [facility] who is excepted the patient to their ICU for further management of this cardiac arrest in the setting of significant myocardial infarction. The patient continued to intermittently code, chest compressions were performed and medications were given in accordance with ACLS protocol. This resulted in ROSC the patient had persistent hypotension that required Levophed infusion. He was being managed on fentanyl for sedation, heparin, and Levophed. Intermittently the patient seemed to wake up and have some purposeful movements, but these episodes were brief. The patient did not seem to tolerate propofol well and would have significant hypotension on this medication. Unfortunately no transport services were available to get this patient to [facility] after acceptance to their ICU. The nearest transport service was the [facility] helicopter, and it was going to be missing sniffing and amount of time before they could arrive. I have been updating the patient's daughter by phone. As we have had recurrent loss of pulse and we are now maxed out on pressor support, it is also noted that the patient is having significant pulmonary edema from his ET tube requiring frequent suction and increased pressures on his ventilator. At this time I feel that we have maximized our efforts and additional efforts are likely futile I have updated the daughter on the patient's critical status and instability. At this time I do not feel that he would survive the transfer she states that after discussion with the family they do know that the patient was DNR/DNI and would not want continued aggressive management they would feel comfortable with stopping resuscitative efforts and making the patient comfortable until he dies. I do feel this is likely the best option for this patient and will follow his wishes as well as his family's wishes. The heparin and Levophed infusions were stopped, he was maintained on the fentanyl infusion for comfort. Patient was monitored and after a short amount of time his heart stopped beating and he was pronounced . Prior to his , his who is a patient at [facility] and was able to speak with him. His daughter is and route from [place] and they do have plans for this patient. Medical Records Medical records reviewed: Yes I reviewed the patient's medical records. Lab Data Lab results reviewed: Yes I reviewed the patient's lab results. Quality:[facility] Health Related Social Needs: No Data to Display Critical Care Time Critical Care Time Critical Care Time: Yes Total Critical Care Time: 62 Attestation: CRITICAL CARE Upon my evaluation, this patient had a high probability of imminent or life- threatening deterioration due to cardiac arrest which required my direct attention, intervention, and personal management. I have personally provided 62 minutes of critical care time exclusive of time spent on separately billable procedures. Time includes review of laboratory data, radiology results, discussion with consultants, and monitoring for potential decompensation. Interventions were performed as documented above [facility] All Active Problems Cardiac arrest (Acute) Parkinson's disease without dyskinesia (Acute) Tremor (Acute) Valvular heart disease (Acute) Knee pain, right anterior (Acute) Elevated troponin (Acute) Allergic rhinitis (Acute) Diabetes mellitus (Chronic 12/09/12) Atherosclerosis of [place] coronary artery (Chronic) coronary stent x 5 05/14 Echo 07/16-LVEF 68% Left shoulder pain (Acute) Depression (Chronic) Bilateral lower extremity edema (Acute) Bilateral arm pain (Acute) Financial difficulties (Acute) Dysfunction of right rotator cuff (Acute) Right shoulder pain (Acute) Peripheral neuropathy (Acute) Cervical radiculopathy (Acute) Mood disorder (Acute) Discharge planning issues (Acute) DVT prophylaxis (Acute) Hyperlipidemia (Chronic) NSTEMI (non-ST elevated myocardial infarction) (Acute) Atrial fibrillation with rapid ventricular response (Acute) Hypomagnesemia (Acute) History of congestive heart failure (Acute) Carpal tunnel syndrome of left wrist (Acute) Trigger finger, left middle finger (Acute) Dupuytren's contracture of left hand (Acute) small finger Cataract, left (Acute) Cataracts, bilateral (Acute) Bilateral carpal tunnel syndrome (Acute) Atherosclerotic renal artery stenosis (Chronic 05/09/04) stent placed Hydrocele (Chronic) left Patellofemoral syndrome, 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 -[facility] Surgical History S/P cardiac catheterization 04/09/23 Per [facility]. -[facility] History of intravascular stent placement Status post inguinal hernia repair Status post tonsillectomy TRIPLE BYPASS 1 CAROTID STENT ON RIGHT SIDE 5 STENTS TOTAL Stent placement 2004; 5 stents 1 stent to left renal artery Repair of inguinal hernia right Family History Mother , AGE 80 Diabetes Heart disease Father , AGE 80 Heart disease Sister No problems noted. Brother No problems noted. Sister No problems noted. Brother Diabetes Heart disease Son , AGE 50 Alcohol abuse Depression Hypertension Daughter No problems noted. Daughter No problems noted. Social History Smoking/Tobacco Use Status: Unknown Second Hand Exposure: No Smoking risk assessment performed?: Yes Drug use: Never Substance use type: does not use Details: alcohol: t-1, couple beers Caregiver/Support person: No Household members: spouse Housing: house Do you need help understanding health information?: Never Pets and animals: Yes Pets and animals: cat(s) Sexually active: No Do you think of yourself as: straight/heterosexual Current gender identity: male and decline to answer What is your relationship status?: How often do you talk on the phone with friends or family?: decline to answer How often do you get together with friends or relatives?: decline to answer How often do you attend christianity or zoroastrian services?: decline to answer Do you belong to any clubs or organized social groups?: no Panel score (0-1 are the most socially isolated patients): 1 What type of physical activity do you participate in: none Frequency: does not exercise Rani/Temple: Church Special rani needs: No Seatbelt use: always Drive intox or ride w/intox driver's license reviewing officer: No Do you feel safe at home: Yes Do you feel safe in your relationship?: Yes
[2024-01-06] MEDS: fentaNYL 1,000 MCG/20 ML VIAL 1000 MCG (01:08)
[2024-01-06 01:51] VITALS: PULSE 0; RESP 0; O2SAT 0
--- NOTE | 2024-01-07 14:49 | NUR.NOTE ---
Access chart to determine what provider saw patient so that I can email them to do the certificate. Nursing Note:
== END 2024-01-06 00:15 | disposition expired ==
PROVIDERS: Emergency Provider Emergency Medicine; PCP Family Medicine
DX: R07.9 Chest pain, unspecified (principal); I46.2 Cardiac arrest due to underlying cardiac condition; I38 Endocarditis, valve unspecified; R79.89 Other specified abnormal findings of blood chemistry; Z95.1 Presence of aortocoronary bypass graft; I21.4 Non-ST elevation (NSTEMI) myocardial infarction; I48.91 Unspecified atrial fibrillation; Z86.79 Personal history of other diseases of the circulatory system
CPT/HCPCS: 31500; 36415; 36416; 51702; 71045; 80053; 80307; 82550; 82805; 82962; 92950; 93005; 96365; 96366; 96367; 96375; 96376; 99291; 80320; 83735; 83880; 84484; 85025; 85610; 85730; 93010; J1644; J2704; J3010; J3475